=== PATIENT | female | born 1980 | race Caucasian/White ===

== ENCOUNTER 2024-07-08 15:41 | Outpatient (AMB) | payer BC, SELFPAY ==
--- NOTE | 2024-07-08 15:51 | A.OFFPC_ITS ---
Vital Signs 07/08/24 15:52 Height 5 ft 6.93 in Weight 198 lb 2 oz BMI 31.1 BP 132/87 Blood Pressure Location Lt brachial Position Sitting Respiration 12 Pulse 81 Pulse Source Pulse Oximeter Pulse Oximetry (%) 97 Oxygen Delivery Method Room Air Intake Visit Reasons: [facility] Tobacco use date assessed: 07/08/24 Dental Screening Dental Screen Date: 07/08/24 HPI HPI Comments History of Present Illness Details This is a 44-year-old female with a past medical history of depression, concentration deficit, hand tremors and hypertension presenting to [facility] [employer]. She transferred from my panel at [facility]. The patient was seen at the emergency department on 07/02/2024. She was at home on her Peloton, and 20 minutes into her work out she developed pain in the middle of her chest. She rates it an 8 or a 9/10. She then felt like she was going to pass out and her hands were numb and stiff. She called 911. She had a workup at the ER including chest x-ray, troponin and EKG. ACS ruled out. Her symptoms resolved after a couple of hours. She still did not feel exactly like herself the next day. She has not exercised since then. She has not had these symptoms since then. Her grandmother had a heart attack over the age of 50. She has no other family history of heart disease. Her blood pressure was normal at the ED. Today it is 132/87. She does not have a history of high cholesterol. She does not smoke. She does not drink alcohol excessively. Patient reports there was nothing unusual about that day. She was not under more stress. She had not eaten anything strange or been sick. She denies acid reflux or abdominal pain. The only medication she takes is bupropion 450 mg (taking a 300 mg and 150 mg extended release tablet) for depression and concentration deficit. She has an appointment with neurology in August at [facility] with Dr. Sweet for evaluation of the tremors in her hands. She just a whole body exam with dermatology recently. ROS: Constitutional: No fevers or chills or unexplained weight loss. Eyes: No vision changes, blurry vision, double vision ENT: No hearing loss, sneezing, congestion, runny nose or sore throat. Respiratory: No shortness of breath, cough or sputum production. Cardiovascular: See HPI Gastrointestinal: No anorexia, nausea, vomiting or diarrhea. No abdominal pain Neurologic: No syncope, seizures or headaches Physical exam: Constitutional: Alert, in no distress. Head: Normocephalic. Neck: Supple, Full range of motion. No lymphadenopathy. No palpable thyroid masses. Respiratory: Clear to auscultation. Cardiovascular: S1 S2 regular. No murmurs. Gastrointestinal: Abdomen soft, non-tender, non-distended. Normal bowel sounds. No palpable masses. Extremities: Warm and well perfused. No clubbing, cyanosis or edema. 3+ peripheral pulses bilaterally. Psychiatric: Normal mood and affect [facility] Medical History (Updated 07/08/24 @ 17:11 by GRICELDA Welsh) Chest pain Tremor of both hands Obesity, class 1 Essential hypertension Epistaxis Dizziness Depression Concentration deficit Cholelithiasis Carpal tunnel syndrome Surgical History (Updated 07/08/24 @ 17:11 by GRICELDA Welsh) History of cholecystectomy History of appendectomy Social History Housing: House Patient Tobacco Use Status: Never used Tobacco e-Cigarette/Vaping Use: Never Used Second Hand Smoke Exposure: No service: Yes Current occupational status: employed Current occupation: [employer] Current occupational exposures/hazards: Yes Cognitive needs: No Hearing needs: No Vision needs: No Questionnaire PHQ-9 Over the last 2 weeks, how often have you been bothered by any of the following problems? 1. Little interest or pleasure in doing things: not at all 2. Feeling down, depressed, or hopeless: not at all 3. Trouble falling or staying asleep, or sleeping too much: not at all 4. Feeling tired or having little energy: not at all 5. Poor appetite or overeating: not at all 6. Feeling bad about yourself - or that you are a failure or have let yourself or your family down: not at all 7. Trouble concentrating on things, such as reading the newspaper or watching television: nearly every day 8. Moving or speaking so slowly that other people could have noticed. Or the opposite - being so fidgety or restless that you have been moving around a lot more than usual: not at all 9. Thoughts that you would be better off or of hurting yourself in some way: not at all Total score: 3 Source: Developed by Drs. Jalen Garcia, Rocio Mcmillan, Blaine Mo and colleagues, with an educational jose from [employer]. Thrive Questionnaire Date Thrive assessed: 06/06/24 I am a: Patient What is your living situation today?: I have a steady place to live Within the past 12 months, did the food you bought not last and you didn't have the money to get more?: I choose not to answer this question Within the past 12 months, did you worry whether your food would run out before you got money to buy more?: I choose not to answer this question Do you have trouble paying for medicines?: No Do you have trouble getting transportation to medical appointments?: No Do you have trouble paying your heating and electricity bill?: No Do you have trouble taking care of your child, family member or friend?: No Do you have trouble with day-to-day activities such as bathing, preparing meals, shopping, managing finances, etc.?: No Are you currently unemployed and looking for a job?: No Are you interested in more education?: No Please select the resources that you would like help with: None Currently or been in a relationship where the following occur: No concerns reported THRIVE Score: 0 RODRIGUEZ-7 AMB Questionnaire RODRIGUEZ-7 Becoming easily annoyed or irritable: 0 = Not at all Source: Developed by Drs. Jalen Garcia, Rocio Mcmillan, Blaine Mo and colleagues, with an educational jose from [employer]. Physical exam (Primary Care) Vital Signs: Last Vital Signs Pulse 81 07/08/24 15:52 Resp 12 07/08/24 15:52 BP 132/87 07/08/24 15:52 Pulse Ox 97 07/08/24 15:52 Oxygen Delivery Method Room Air 07/08/24 15:52 BMI result Body Mass Index 31.1 Tobacco/Smoking Status: Tobacco use Status Tobacco use date assessed 07/08/24 07/08/24 15:55 Patient Tobacco Use Status Never used Tobacco 07/08/24 15:55 e-Cigarette/Vaping Use Never Used 07/08/24 15:55 PHQ-9: PHQ-9 Score PHQ-9: Total score 3 07/08/24 16:11 Thrive Assessment: Date of Thrive Assessment Date Thrive assessed 06/06/24 07/08/24 15:55 Currently or been in a relationship where the following occur: No concerns reported Coding Level of Care Code Est Pt Level 4 (22065) Complex EM visit Add On G2211 Diagnoses Chest pain R07.9 Depression F32.A Concentration deficit R41.840 Assessment & Plan Assessment & Plan (1) Chest pain: Code(s): R07.9 - Chest pain, unspecified Category: Medical Plan: Exertional chest pain with near syncopal event. ER workup negative for ACS. Ordered echo and nuclear stress test to be done urgently. Patient advised to call 911 for recurrent symptoms. Check lipid profile for risk factor stratification. (2) Depression: Code(s): F32.A - Depression, unspecified Category: Medical Plan: Stable on bupropion. Refills sent. (3) Concentration deficit: Code(s): R41.840 - Attention and concentration deficit Category: Medical Plan Follow up in 4 weeks for a physical. Orders: Orders Lipid Panel Today E78.5 - Hyperlipidemia, unspecified CA stress test Today R07.9 - Chest pain, unspecified, R55 - Syncope and collapse NM cardiolite stress test Today R07.9 - Chest pain, unspecified, R55 - Syncope and collapse CA echo transthoracic complete Today R07.9 - Chest pain, unspecified, R55 - Syncope and collapse Medications: New bupropion HCl XL 450 mg PO QAM 90 tabs 3RF
[2024-07-08 15:52] VITALS: BP 132/87; PULSE 81; RESP 12; O2SAT 97; BMI 31.1
== END 2024-07-08 16:26 | disposition home or self-care (01) ==
PROVIDERS: PCP Physician Assistant Medical; Visit Provider Physician Assistant Medical
DX: R07.9 Chest pain, unspecified (principal); F32.A Depression, unspecified; R41.840 Attention and concentration deficit

== ENCOUNTER 2024-08-26 08:12 | Outpatient (AMB) | payer BC, SELFPAY ==
--- NOTE | 2024-08-26 08:30 | MHC.PC.OV ---
Vital Signs 08/26/24 08:35 Height 5 ft 6.93 in Weight 197 lb 6 oz BMI 31.0 BP 112/78 Blood Pressure Location Lt brachial Position Sitting Pulse 78 Pulse Source Pulse Oximeter Pulse Oximetry (%) 98 Oxygen Delivery Method Room Air Intake Visit Reasons: annual physical Intake Note: Physical Corporation Secretary Required: No Allergies penicillin G Allergy (Unknown, Verified 08/26/24 08:31) Rash Tobacco use date assessed: 08/26/24 Dental Screening Dental Screen Date: 07/08/24 HPI HPI Comments History of Present Illness Details This is a 44-year-old female with a past medical history of depression, concentration deficit, hand tremors and hypertension presenting for her annual physical exam. Patient seen 07/08/24: The patient was seen at the emergency department on 07/02/2024. She was at home on her Peloton, and 20 minutes into her work out she developed pain in the middle of her chest. She rates it an 8 or a 9/10. She then felt like she was going to pass out and her hands were numb and stiff. She called 911. She had a workup at the ER including chest x-ray, troponin and EKG. ACS ruled out. Her symptoms resolved after a couple of hours. She still did not feel exactly like herself the next day. She has not exercised since then. She has not had these symptoms since then. Her grandmother had a heart attack over the age of 50. She has no other family history of heart disease. Her blood pressure was normal at the ED. Today it is 132/87. She does not have a history of high cholesterol. She does not smoke. She does not drink alcohol excessively. Patient reports there was nothing unusual about that day. She was not under more stress. She had not eaten anything strange or been sick. She denies acid reflux or abdominal pain. She did not get a call to schedule the echo or stress test I ordered. She has not had further episodes. She denies chest pain and shortness of breath. 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 I spoke to the office and sent a message to have the prior authorization is done for the testing. Patient was instructed to call if she does not hear about them in 2 weeks. I set a patient reminder. She takes is bupropion 450 mg (taking a 300 mg and 150 mg extended release tablet) for depression and concentration deficit. She does note more difficulty concentrating recently. She wonders if it could be due to the upcoming wedding for her son. It is the Monday. She is nervous about it. She is also excited about it. We discussed alternative medications, but she would like to continue it for now. She declines psych consult. She has a history of epistaxis. She saw ENT, but she was not satisfied with the consult. She would like a new referral. She was referred to the ENT office in [place]. She has an appointment with neurology September 08 at [facility] with Dr. Sweet for evaluation of the tremors in her hands. She is sleeping well. She saw dermatology in 2023 for an annual skin exam. 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 UTD with eye and dental exams. Last tetatnus immunization in 2016 per patient through work. Influenza vaccine administered today. ROS: Constitutional: No unexplained weight loss, fever, chills, fatigue or night sweats. Eyes: No vision changes, blurry vision, double vision, eye pain, eye redness, eye discharge. ENT: No hearing loss, sneezing, congestion, runny nose or sore throat. Respiratory: No shortness of breath, cough or sputum production. Cardiovascular: No chest pain, chest pressure or chest discomfort. No palpitations or pedal edema. Gastrointestinal: No anorexia, nausea, vomiting or diarrhea. No abdominal pain or blood in stool. Genitourinary: No dysuria, hematuria, urinary frequency. Neurologic: No headache, dizziness, syncope, unilateral weakness, ataxia, numbness or tingling in the extremities. Musculoskeletal: No muscle pain, back pain, joint pain or swelling. Hematologic/Lymphatics: No bleeding or bruising. No painful lymph nodes. Skin: No rash. Endocrine: No cold or heat intolerance. No polyuria or polydipsia. Psychiatric: No SI/HI. Physical exam: Constitutional: Alert, in no distress. Head: Normocephalic. Eyes: Pupils are equal, round and reactive to light. Extraocular muscles intact. Ear, Nose and Throat: Canals clear. Left TM with a few clear air-fluid bubbles. It is not erythematous or bulging. The right tympanic membrane is normal aside from a scar. There is a friable appearing vessel in the left nares. There is no active nasal bleeding. No nasal discharge. No oral lesions. Neck: Supple, Full range of motion. No lymphadenopathy. No palpable thyroid masses. Respiratory: Clear to auscultation. Cardiovascular: S1 S2 regular. No murmurs. No carotid bruits. Gastrointestinal: Abdomen soft, non-tender, non-distended. Normal bowel sounds. No palpable masses. Neurologic: No focal neurological deficits. Symmetric patellar reflexes. Moves all extremities spontaneously. Sensation intact bilaterally. Skin: No rashes Musculoskeletal: No gross deformities. Normal range of motion. Extremities: Warm and well perfused. No clubbing, cyanosis or edema. 3+ peripheral pulses bilaterally. Psychiatric: Normal mood and affect [facility] Medical History (Updated 08/26/24 @ 08:36 by GRICELDA Welsh) Routine physical examination Chest pain Tremor of both hands Obesity, class 1 Essential hypertension Epistaxis Dizziness Depression Concentration deficit Cholelithiasis Carpal tunnel syndrome Surgical History (Updated 07/08/24 @ 17:11 by GRICELDA Welsh) History of cholecystectomy History of appendectomy Social History Housing: House Alcohol intake: never Patient Tobacco Use Status: Never used Tobacco e-Cigarette/Vaping Use: Never Used Second Hand Smoke Exposure: No service: Yes Current occupational status: employed Current occupation: [employer] Current occupational exposures/hazards: Yes Cognitive needs: No Hearing needs: No Vision needs: No Questionnaire PHQ-9 Over the last 2 weeks, how often have you been bothered by any of the following problems? 1. Little interest or pleasure in doing things: not at all 2. Feeling down, depressed, or hopeless: several days 3. Trouble falling or staying asleep, or sleeping too much: not at all 4. Feeling tired or having little energy: several days 5. Poor appetite or overeating: not at all 6. Feeling bad about yourself - or that you are a failure or have let yourself or your family down: not at all 7. Trouble concentrating on things, such as reading the newspaper or watching television: several days 8. Moving or speaking so slowly that other people could have noticed. Or the opposite - being so fidgety or restless that you have been moving around a lot more than usual: not at all 9. Thoughts that you would be better off or of hurting yourself in some way: not at all Total score: 3 Depression Screening Interpretation: Negative Depression Screening Done: Yes 29314 - PHQ-9 Billing: Yes Source: Developed by Drs. Jalen Garcia, Blaine Mckay and colleagues, with an educational jose from [employer]. Thrive Questionnaire Date Thrive assessed: 08/19/24 I am a: Patient What is your living situation today?: I have a steady place to live Within the past 12 months, did the food you bought not last and you didn't have the money to get more?: Never true Within the past 12 months, did you worry whether your food would run out before you got money to buy more?: Never true Do you have trouble paying for medicines?: No Do you have trouble getting transportation to medical appointments?: No Do you have trouble paying your heating and electricity bill?: No Do you have trouble taking care of your child, family member or friend?: No Do you have trouble with day-to-day activities such as bathing, preparing meals, shopping, managing finances, etc.?: No Are you currently unemployed and looking for a job?: No Are you interested in more education?: No Please select the resources that you would like help with: None Currently or been in a relationship where the following occur: No concerns reported THRIVE Score: 0 AUDIT C Alcohol Use Questionnaire (AUDIT-C) 1. How often do you have a drink containing alcohol?: Never Total Score: 0 RODRIGUEZ-7 AMB Questionnaire RODRIGUEZ-7 Date RODRIGUEZ - 7 assessed: 08/26/24 Feeling nervous, anxious, or on edge: 0 = Not at all Not being able to stop or control worryin = Not at all Worrying too much about different things: 0 = Not at all Trouble relaxin = Not at all Being so restless that it is hard to sit still: 0 = Not at all Becoming easily annoyed or irritable: 1 = Several days Feeling afraid as if something awful might happen: 0 = Not at all Total RODRIGUEZ-7 score (0-4 normal; 5-9 mild; 10-14 moderate; 15-21 severe): 1 Source: Developed by Rocio Colón Kurt Kroenke and colleagues, with an educational jose from [employer]. RODRIGUEZ-7 Assessment Billing RODRIGUEZ-7 Assessment Tool: RODRIGUEZ-7 Assessment 28064 Physical exam (Primary Care) Tobacco/Smoking Status: Tobacco use Status Tobacco use date assessed 07/08/24 07/08/24 15:55 Patient Tobacco Use Status Never used Tobacco 07/08/24 15:55 e-Cigarette/Vaping Use Never Used 07/08/24 15:55 Depression Screening Interpretation: Negative Thrive Assessment: Date of Thrive Assessment Date Thrive assessed 08/19/24 08/19/24 12:04 Currently or been in a relationship where the following occur: No concerns reported Coding Level of Care Code Est Pt Prev Care 40-64y(96049) Diagnoses Routine physical examination Z00.00 Chest pain R07.9 Additional Codes RODRIGUEZ-7 Assessment Billing - RODRIGUEZ-7 Assessment Tool: RODRIGUEZ-7 Assessment 05596 ([id number]) PHQ-9 - 09000 - PHQ-9 Billing: Yes ([id number]) Assessment & Plan Assessment & Plan (1) Routine physical examination: Code(s): Z00.00 - Encounter for general adult medical examination without abnormal findings Category: Medical (2) Chest pain: Code(s): R07.9 - Chest pain, unspecified Category: Medical Plan: see HPI Plan Patient is seen today for a routine physical. 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 Orders: Orders Complete Blood Count no Diff Today I10 - Essential (primary) hypertension, R25.1 - Tremor, unspecified TSH reflex Free T4 Today I10 - Essential (primary) hypertension, R25.1 - Tremor, unspecified Influenza [id number] Immunization Today Z23 - Encounter for immunization Comprehensive Met. Panel Today I10 - Essential (primary) hypertension, R25.1 - Tremor, unspecified Referrals Ear/Nose/Throat Referral R04.0 - Epistaxis Medications: New Fluarix Triv [id number] (PF) (flu vacc [id number] 6mos up(PF)) 0.5 mL IM ONCE 0.5 mL 0RF NS Z23 - Encounter for immunization
[2024-08-26 08:35] VITALS: BP 112/78; PULSE 78; O2SAT 98; BMI 31.0
== END 2024-08-26 09:17 | disposition home or self-care (01) ==
PROVIDERS: PCP Physician Assistant Medical; Visit Provider Physician Assistant Medical
DX: Z00.00 Encounter for general adult medical examination without abnormal findings (principal); R07.9 Chest pain, unspecified; Z23 Encounter for immunization

== ENCOUNTER → 2024-08-26 08:12 | Outpatient (BNVA) | payer BC, SELFPAY | PROVIDERS: PCP Physician Assistant Medical; Visit Provider Physician Assistant Medical | DX: Z00.00 Encounter for general adult medical examination without abnormal findings (principal); Z23 Encounter for immunization; F32.A Depression, unspecified; R25.1 Tremor, unspecified; I10 Essential (primary) hypertension; R41.840 Attention and concentration deficit; Z79.899 Other long term (current) drug therapy | CPT/HCPCS: 90471; 90656; 96127 ==

== ENCOUNTER 2024-09-04 14:47 | Outpatient (AMB) | payer BC, SELFPAY ==
[2024-09-04 14:58] VITALS: BMI 32.0
--- NOTE | 2024-09-04 14:58 | MHC.OFFVIS ---
Vital Signs 09/04/24 14:58 Height 5 ft 6 in Weight 198 lb BMI 32.0 Intake Visit Reasons: ENP: Tremors Intake Note: Patient presents for tremors mostly hands once in a while will feel tremors in legs Allergies penicillin G Allergy (Unknown, Verified 09/04/24 15:01) Rash Medication List - Last Reconciled 09/04/24 by Eliza Sweet MD bupropion HCl XL 300 mg PO QAM bupropion HCl XL 150 mg PO QAM multivitamin 1 tab PO DAILY HPI Comments Details: 44y/o Right handed female comes for evaluation of tremors. she always had mild tremors in her hands for over 20 years but for the pats 2 years she feels it is worse. Now she is unable use an eyeliner, difficulty with fine motor function, drinking liquids ( uses 2 hands now), eating etc. The tremors are during certain postures .when she is anxious or stressed, she has noticed rest tremors even in her legs. she is able to hide the tremor sin social situations. No head tremors or voice tremors Her father has mild tremors and her older son has tremors. 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 she denies weakness, gait issues, change in voice etc. she also has mild voic etremors she was seen by Dr. Cazares and had MRI brain, TSH levels . Both were normal [facility] Medical History (Updated 09/04/24 @ 15:38 by Eliza Sweet MD) Essential and other specified forms of tremor Routine physical examination Chest pain Tremor of both hands Obesity, class 1 Essential hypertension Epistaxis Dizziness Depression Concentration deficit Cholelithiasis Carpal tunnel syndrome Surgical History History of cholecystectomy History of appendectomy Social History Housing: House Alcohol intake: never Patient Tobacco Use Status: Never used Tobacco e-Cigarette/Vaping Use: Never Used Second Hand Smoke Exposure: No service: Yes Current occupational status: employed Current occupation: [employer] Current occupational exposures/hazards: Yes Cognitive needs: No Hearing needs: No Vision needs: No Physical Exam Vital Signs: BMI result Body Mass Index 32.0 Const General: cooperative, healthy appearing and comfortable Nutritional Appearance: overweight Orientation/consciousness: patient oriented x3 Limitations: no limitations Eyes Pupils: Equal, round and reactive pupils present Neuro Other: very mild postural tremors, robyn UE ARchimedes spiral - mild tremors right moderate - left Handwriting is Ok General: patient oriented x3, gait normal, tone normal and moves all extremities Cranial nerves: Yes Facial sensation intact/muscles of mastication intact, Yes Equal, round and reactive pupils present, Yes Bilaterally intact EOM present, Yes Nystagmus not present, Yes Normal facial strength present, Yes Midline tongue present and Yes Symmetric palate elevation present Cognition (Neuro): normal cognition Gait exam (Neuro): Normal gait present Motor exam (neuro): 5/5 motor strength present throughout and Normal motor muscle tone present throughout Deep tendon reflexes (DTR's): Right triceps reflex intensity grade: 1+, Left triceps reflex intensity grade: 1+, Rt Biceps (C5, C6): 1+, Left biceps reflex intensity grade: 1+, Right brachioradialis reflex intensity grade: 1+, Left brachioradialis reflex intensity grade: 1+ and Right patellar reflex intensity grade: 1+ Coordination: [id number] test normal Assessment & Plan Assessment & Plan (1) Essential and other specified forms of tremor: 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 Medications: New propranolol 10 mg PO BID PRN 60 tabs 2RF tremors Coding Level of Care Code New Pt Level 4 (26981) Diagnoses Essential and other specified forms of tremor G25.0; G25.2
--- OUTSIDE RECORDS SUMMARY | 2024-09-04 17:18 | XMS_ITS | Clinical Summary ---
Author Organization [facility] Address [address] [place] [address] Care Team Providers Care Orthopaedic Surgeon Name Role Phone Bernardo Pisano PA-C Primary Care Provider [phone] Medications No known medications Active Problems No known active problems Social History Tobacco Use Types Packs/Day Years Used Date Smoking Tobacco: Never Assessed Sex and Gender Information Value Date Recorded Sex Assigned at Female 04/26/2022 9:21 AM EDT Gender Identity Not on file Sexual Orientation Not on file Job Start Date Occupation Industry Not on file Not on file Not on file Last Filed Vital Signs Vital Sign Reading Time Taken Comments Blood Pressure 126/86 04/26/2022 3:51 PM EDT Pulse 77 04/26/2022 3:51 PM EDT Temperature 36.8 ??C (98.3 ??F) 04/26/2022 3:51 PM ED T Respiratory Rate 18 04/26/2022 3:51 PM EDT Oxygen Saturation 97% 04/26/2022 3:51 PM EDT Inhaled Oxygen Concentration - - Weight 101.2 kg (223 lb) 04/26/2022 1:23 PM EDT Height 172.7 cm (5' 8 ) 04/26/2022 1:23 PM EDT Body Mass Index 33.91 04/26/2022 1:23 PM EDT Plan of Treatment Health Maintenance Due Date Last Done Comments Hepatitis B Vaccines (1 of 3 - 3-dose series) 1982 Hepatitis C Screening 1982 Depression Screening 1994 Preventative Health Evaluation 2000 Cervical Cancer Screening (Pap Smear) 2003 DTap / Tdap / Td (2 - Tdap) 04/26/2014 04/26/2004 COVID-19 Vaccine (2023-2 5 season) 2024 10/06/2020, 09/15/2020 Influenza Vaccine (#1) 2024 , 08/20/2018, 09/28/2016 Pneumococcal Vaccine Aged Out No long er eligible based on patient's age to complete this topic RSV Ped < 20 months Aged Out No longe r eligible based on patient's age to complete this topic Care Teams Orthopaedic Surgeon Relationship Specialty Start Date End Date Bernardo Pisano PA-C [address] [place] [phone] PCP - General Physician Crew Chief 04/26/22
--- OUTSIDE RECORDS SUMMARY | 2024-09-04 17:18 | XMS_ITS | Encounter Summary ---
Author Organization [facility] Address [address] [place] [address] Care Team Providers Care Accountant Manager Name Role Phone Unavailable Primary Care Provider Unavailabl e Encounter Details Date Type Department Care Team (Late st Contact Info) Description 06/26/2020 Lab Requisition EM Lab DOC: Jeremias Cochran [address] [place] [phone] Bernardo Ramirez PA-C [address] [place] [phone] Encounter for laboratory testing for COVID-19 virus Social History Tobacco Use Types Packs/Day Years Used Date Smoking Tobacco: Never Assessed Sex and Gender Information Value Date Recorded Sex Assigned at Not on file Gender Identity Not on file Sexual Orientation Not on file documented as of this encounter Plan of Treatment Not on file documented as of this encounter Procedures Procedure Name Priority Date/Time Associated Diagnosis Comments SARS COV-2 RNA (COVID-19), QUAL Routine 06/26/2020 8:33 AM EST Encounter for laboratory testing for COVID-19 virus [ICD-10-CM] documented in this encounter Results * SARS CoV-2 RNA (COVID-19), Qual (06/26/2020 8:33 AM EST) Pathologist [facility] SARS CoV 2 RNA, Qual NOT DETECTED NOT DETECTED 06/28/2020 9:00 PM EST [facility] Comment: A Not Detected (negative) test result for this test means that SARS-CoV-2 RNA was not present in the specimen above the limit of detection. A negative result does not rule out the possibility of COVID-19 and should not be used as the sole basis for treatment or patient management decisions. If COVID-19 is still suspected, based on exposure history together with other clinical findings, re-testing should be considered in consultation with public health authorities. Laboratory test results should always be considered in the context of clinical observations and epidemiological data in making a final diagnosis and patient management decisions. REFERENCE RANGE: ??NOT DETECTED This patient specimen was tested using an FDA EUA pooling method. Negative results from pooled testing should not be treated as definitive. ??If the patient's clinical signs and symptoms are inconsistent with a negative result or results are necessary for patient management, then the patient should be considered for individual testing. Specimens with low viral loads may not be detected in sample pools due to the decreased sensitivity of pooled testing. Please review the Fact Sheets and FDA authorized labeling available for health care providers and patients using the following websites: https://www.Stix Games.Gamervision/home/Covid-19/HCP/QuestLDTP/ fact-sheet https://www.VASS Technologies/home/Covid-19/Patients/QuestLDTP/ fact-sheet.html This test has been authorized by the FDA under an Emergency Use Authorization (EUA) for use by authorized laboratories. Due to the current public health emergency, [employer] is receiving a high volume of samples from a wide variety of swabs and media for COVID-19 testing. In order to serve patients during this public health crisis, samples from appropriate clinical sources are being tested. Negative test results derived from specimens received in non-commercially manufactured viral collection and transport media, or in media and sample collection kits not yet authorized by FDA for COVID-19 testing should be cautiously evaluated and the patient potentially subjected to extra precautions such as additional clinical monitoring, including collection of an additional specimen. Methodology: ??Nucleic Acid Amplification Test (NAAT) includes RT-PCR or TMA ?? Additional information about COVID-19 can be found at the [employer] website: www.Naurex.Gamervision/Covid19. Microbiology Nasopharyngeal swab / Unknown 06/26/2020 8:33 AM EST 06/26/2020 8:33 AM EST [facility] - 06/28/2020 9:00 PM EST Performing Organization Information: ?Site ID: [id number] ?Name: [employer] ?Address: [address] [place] [address],[place] [address] ?Director: ALFREDO MACKEY MD [facility] at [facility] number [id number] Bernardo Ramirez PA-C MICROBIOLOGY - [facility] ORDERABLES Performing Organization Address City/State/[facility] Co de Phone Number [facility] documented in this encounter Visit Diagnoses Diagnosis Encounter for laboratory testing for COVID-19 virus documented in this encounter
--- OUTSIDE RECORDS SUMMARY | 2024-09-04 17:18 | XMS_ITS | Encounter Summary ---
Author Organization [facility] Address [address] [place] [address] Care Team Providers Care Credit Professional Name Role Phone Unavailable Primary Care Provider Unavailabl e Encounter Details Date Type Department Care Team (Late st Contact Info) Description 06/16/2020 Lab Requisition EM Lab DOC: Jeremias Cochran [address] [place] [phone] Bernardo Ramirez PA-C [address] [place] [address] [phone] Encounter for laboratory testing for COVID-19 virus [...] Comments SARS COV-2 RNA (COVID-19), QUAL Routine 06/16/2020 2:46 PM EST Encounter for laboratory testing for COVID-19 virus [ICD-10-CM] documented in this encounter Results * SARS CoV-2 RNA (COVID-19), Qual (06/16/2020 2:46 PM EST) Pathologist [facility] SARS CoV 2 RNA, Qual NOT DETECTED NOT DETECTED 06/17/2020 10:00 PM EST [facility] Comment: A Not Detected (negative) test result [...] providers and patients using the following websites: https://www.Toppermost, Corp..Pzoom/home/Covid-19/HCP/QuestLDTP/ fact-sheet https://www.Face-Me/home/Covid-19/Patients/QuestLDTP/ fact-sheet.html This test has been authorized by the FDA under an Emergency Use Authorization (EUA) for use by authorized laboratories. Due to the current public health emergency, [facility] is receiving a high volume of samples [...] about COVID-19 can be found at the [employer] website: www.FourthWall Media.Pzoom/Covid19. Microbiology Nasopharyngeal swab / Unknown 06/16/2020 2:46 PM EST 06/16/2020 2:46 PM EST Narrative [facility] - 06/17/2020 10:00 PM EST Performing Organization Information: ?Site ID: [id number] ?Name: [employer] ?Address: [address] [place] [address],[place] [address] ?Director: ALFREDO MACKEY MD Performed at [facility] License number [id number] Bernardo Ramirez PA-C MICROBIOLOGY - [facility] ORDERABLES Performing Organization Address City/State/[facility] Co de Phone Number [facility] documented in this encounter Visit Diagnoses Diagnosis Encounter for laboratory testing for COVID-19 virus documented in this encounter
--- OUTSIDE RECORDS SUMMARY | 2024-09-04 17:18 | XMS_ITS | Encounter Summary ---
Author Organization [facility] Address [address] [place] [address] Care Team Providers Care Urban Renewal Manager Name Role Phone Unavailable Primary Care Provider Unavailabl e Encounter Details Date Type Department Care Team (Late st Contact Info) Description 08/11/2020 Lab Requisition EM Lab DOC: Jeremias Cochran [address] [place] [phone] Bernardo Ramirez PA-C [address] [place] [phone] Encounter for laboratory testing for COVID-19 virus [...] Comments SARS COV-2 RNA (COVID-19), QUAL Routine 08/11/2020 8:07 AM EST Encounter for laboratory testing for COVID-19 virus [ICD-10-CM] documented in this encounter Results * SARS CoV-2 RNA (COVID-19), Qual (08/11/2020 8:07 AM EST) Pathologist [facility] SARS CoV 2 RNA, Qual NOT DETECTED NOT DETECTED 08/12/2020 10:00 PM EST [facility] Comment: A Not Detected (negative) test result for this test means that SARS- CoV-2 RNA was not present in the specimen above the limit of detection. A negative result does not rule out the possibility of COVID-19 and should not be used as the sole basis for treatment or patient management decisions. ??If COVID-19 is still suspected, based on exposure history together with other clinical findings, re-testing should be considered in consultation with public health authorities. Laboratory test results should always be considered in the context of clinical observations and epidemiological data in making a final diagnosis and patient management decisions. Please review the Fact Sheets and FDA authorized labeling available for health care providers and patients using the following websites: https://www.Pickatale.Mark Forged/home/Covid-19/HCP/NAAT/fact-sheet2 https://www.Pickatale.Mark Forged/home/Covid-19/Patients/NAAT/ fact-sheet2 This test has been authorized by the FDA under an Emergency Use Authorization (EUA) for use by authorized laboratories. Due to the current public health emergency, [employer] is receiving a high volume of samples [...] about COVID-19 can be found at the [employer] website: www.Advanced Circulatory/Covid19. Microbiology Nasopharyngeal swab / Unknown 08/11/2020 8:07 AM EST 08/11/2020 8:07 AM EST Narrative [facility] - 08/12/2020 10:00 PM EST Performing Organization Information: ?Site ID: [id number] ?Name: [employer] ?Address: [address] [place] [address] [address]LO[address] [address] ?Director: ALFREDO MACKEY MD [facility]formed at [facility] License number [id number] Bernardo Ramirez PA-C MICROBIOLOGY - [facility] ORDERABLES [facility] documented in this encounter Visit Diagnoses Diagnosis Encounter for laboratory testing for COVID-19 virus documented in this encounter
--- OUTSIDE RECORDS SUMMARY | 2024-09-04 17:18 | XMS_ITS | Encounter Summary ---
Author Organization [facility] Address [address] [place] [address] Care Team Providers Care Sugar Controller Name Role Phone Unavailable Primary Care Provider Unavailabl e Encounter Details Date Type Department Care Team (Late st Contact Info) Description 07/16/2020 Lab Requisition EM LAB DOC [facility] [address] [place] [phone] Bernardo Ramirze PA-C [address] [place] [phone] Encounter for laboratory testing for COVID-19 virus [...] Comments SARS COV-2 RNA (COVID-19), QUAL Routine 07/16/2020 1:50 PM EST Encounter for laboratory testing for COVID-19 virus [ICD-10-CM] documented in this encounter Results * SARS CoV-2 RNA (COVID-19), Qual (07/16/2020 1:50 PM EST) Pathologist [facility] SARS CoV 2 RNA, Qual NOT DETECTED NOT DETECTED 07/18/2020 5:00 PM EST [facility] Comment: A Not Detected (negative) [...] providers and patients using the following websites: https://www.MiMedx Group.[facility]/home/Covid-19/HCP/NAAT/fact-sheet2 https://www.MiMedx Group.[facility]/home/Covid-19/Patients/NAAT/ fact-sheet2 This test has been authorized by the FDA under an Emergency Use Authorization (EUA) for use by authorized laboratories. Due to the current public health emergency, [facility] is receiving a high volume of samples [...] about COVID-19 can be found at the [facility] website: www.GreenGo Energy A/S/Covid19. Microbiology Nasopharyngeal swab / Unknown 07/16/2020 1:50 PM EST 07/16/2020 1:50 PM EST Narrative [facility] - 07/18/2020 5:00 PM EST Performing Organization Information: ?Site ID: [id number] ?Name: [employer] ?Address: [address] [place] [address],[place] [address] ?Director: ALFREDO MACKEY MD [facility]formed at [facility] License number [id number] Bernardo Ramirez PA-C MICROBIOLOGY - [facility] ORDERABLES [facility] documented in this encounter Visit Diagnoses Diagnosis Encounter for laboratory testing for COVID-19 virus documented in this encounter
--- OUTSIDE RECORDS SUMMARY | 2024-09-04 17:18 | XMS_ITS | Encounter Summary ---
Author Organization [facility] Address [address] [place] [address] Care Team Providers Care Master Plumber Name Role Phone Unavailable Primary Care Provider Unavailabl e Encounter Details Date Type Department Care Team (Late st Contact Info) Description 03/03/2020 Lab Requisition EM Lab DOC: Jeremias Cochran [address] [place] [phone] Bernardo Ramirez PA-C [address] [place] [phone] Encounter for laboratory testing for COVID-19 virus [...] Comments SARS COV-2 RNA (COVID-19), QUAL Routine 03/03/2020 12:07 PM EDT Encounter for laboratory testing for COVID-19 virus [ICD-10-CM] documented in this encounter Results * SARS CoV-2 RNA (COVID-19), Qual (03/03/2020 12:07 PM EDT) Pathologist [facility] SARS CoV 2 RNA, Qual NOT DETECTED NOT DETECTED 03/04/2020 5:00 PM EDT [facility] Comment: A Not Detected [...] providers and patients using the following websites: https://www.Liquid Robotics.Dicerna Pharmaceuticals/home/Covid-19/HCP/NAAT/fact-sheet2 https://www.Liquid Robotics.Dicerna Pharmaceuticals/home/Covid-19/Patients/NAAT/ fact-sheet2 This test has been authorized by the FDA under an Emergency Use Authorization (EUA) for use by authorized laboratories. Due to the current public health emergency, [facility] is receiving a high volume of samples [...] Methodology: ??Nucleic Acid Amplification Test (NAAT) includes PCR or TMA ?? Additional information about COVID-19 can be found at the [facility] website: www.Stumpwise/Covid19. Microbiology Nasopharyngeal swab / Unknown 03/03/2020 12:07 PM EDT 03/03/2020 12:07 PM EDT Narrative [facility] - 03/04/2020 5:00 PM EDT Performing Organization Information: ?Site ID: [id number] ?Name: [employer] ?Address: [address] [place] [address],[place] [address] ?Director: ALFREDO MACKEY MD [facility]formed at [facility] License number [id number] Bernardo Ramirez PA-C MICROBIOLOGY - [facility] ORDERABLES [facility] documented in this encounter Visit Diagnoses Diagnosis Encounter for laboratory testing for COVID-19 virus documented in this encounter
--- OUTSIDE RECORDS SUMMARY | 2024-09-04 17:18 | XMS_ITS | Clinical Summary ---
Author Organization [facility] Address [address] [place] [address] Care Team Providers Care Construction Sales Manager Name Role Phone Unavailable Primary Care Provider Unavailabl e Encounters Date Type Department Care Team Description 09/04/2024 Transcribe Orders [facility] PRIMARY CARE SCAN Evon Carcamo PA Epistaxis (Primary Dx) from Last 3 Months Social History Tobacco Use Types Packs/Day Years Used Date Smoking Tobacco: Never Assessed Sex and Gender Information Value Date Recorded Sex Assigned at Not on file Gender Identity Not on file Sexual Orientation Not on file Plan of Treatment Health Maintenance Due Date Last Done Comments Hepatitis C Virus Screening 1982 HIV Screening 1995 DTaP/Tdap/Td Vaccines (1 - Tdap) 2001 Hepatitis B Vaccines (1 of 3 - 19+ 3-dose series) 2001 COVID-19 Vaccine (2023-2 5 season) 2024 HPV Vaccines Aged Out No longer eligi ble based on patient's age to complete this topic Pneumococcal Vaccine: Pediat shital (0-5 Years) and At-Risk Patients (6 to 49 Years) Aged Out No longer eligible b ased on patient's age to complete this topic
--- OUTSIDE RECORDS SUMMARY | 2024-09-04 17:18 | XMS_ITS | Encounter Summary ---
Author Organization [facility] Address [address] [place] [address] Care Team Providers Care Spindraw Operator Name Role Phone Unavailable Primary Care Provider Unavailabl e Encounter Details Date Type Department Care Team (Late st Contact Info) Description 05/19/2020 Lab Requisition EM Lab DOC: Jeremias Cochran [address] [place] [phone] Bernardo Ramirez PA-C [address] [place] [address] [phone] Encounter for laboratory testing for COVID-19 virus [...] Comments SARS COV-2 RNA (COVID-19), QUAL Routine 05/19/2020 2:48 PM EDT Encounter for laboratory testing for COVID-19 virus [ICD-10-CM] documented in this encounter Results * SARS CoV-2 RNA (COVID-19), Qual (05/19/2020 2:48 PM EDT) Pathologist [facility] SARS CoV 2 RNA, Qual NOT DETECTED NOT DETECTED 05/20/2020 11:00 PM EDT [facility] Comment: A [...] providers and patients using the following websites: https://www.Ephesus Lighting.Alacritech/home/Covid-19/HCP/QuestLDTP/ fact-sheet https://www.Blinkit/home/Covid-19/Patients/QuestLDTP/ fact-sheet.html This test has been authorized by the FDA under an Emergency Use Authorization (EUA) for use by authorized laboratories. Due to the current public health emergency, [employer] is receiving a high volume of samples [...] about COVID-19 can be found at the [employer] website: www.GC Holdings.Alacritech/Covid19. Microbiology Nasopharyngeal swab / Unknown 05/19/2020 2:48 PM EDT 05/19/2020 2:48 PM EDT Narrative [facility] - 05/20/2020 11:00 PM EDT Performing Organization Information: ?Site ID: [id number] ?Name: [employer] ?Address: [address] [place] [address],[place] [address] ?Director: ALFREDO MACKEY MD [facility] number [id number] Bernardo Ramirez PA-C MICROBIOLOGY - [facility]ER[facility] ORDERABLES Performing Organization Address City/State/[facility] Co de Phone Number [facility] documented in this encounter Visit Diagnoses Diagnosis Encounter for laboratory testing for COVID-19 virus documented in this encounter
--- OUTSIDE RECORDS SUMMARY | 2024-09-04 17:18 | XMS_ITS | Encounter Summary ---
Author Organization [facility] Address [address] [place] [address] Care Team Providers Care Digital Account Manager Name Role Phone Unavailable Primary Care Provider Unavailabl e Reason for Referral * ENT (Routine) - Pending Review Specialty Diagnoses / Procedures Referred By Mai candelaria Referred To Contact Otolaryngology Diagnoses Epistaxis Evon Carcamo PA [address] [place] [address] Cc [facility] [address] [place] [address] [place] [address] Referral ID Status Reason Start Date Expiration Date Visits Requested Visits Authorized [id number] Pending Review Consult 09/04/2024 09/05/2025 1 1 Encounter Details Date Type Department Care Team (Late st Contact Info) Description 09/04/2024 Transcribe Orders [facility] PRIMARY CARE SCAN Evon Carcamo PA [address] [place] [address] Epistaxis (Primary Dx) Social History Tobacco Use Types Packs/Day Years Used Date Smoking Tobacco: Never Assessed Sex and Gender Information Value Date Recorded Sex Assigned at Not on file Gender Identity Not on file Sexual Orientation Not on file documented as of this encounter Plan of Treatment Scheduled Referrals Name Type Priority Associated Diagnoses Order Schedule Ambulatory referral to ENT Outpatient Referral Routine Epistaxis Ordered: 09/04/2024 documented as of this encounter Visit Diagnoses Diagnosis Epistaxis- Primary documented in this encounter
--- OUTSIDE RECORDS SUMMARY | 2024-09-04 17:18 | XMS_ITS | Clinical Summary ---
Author Organization [facility] ity Address [address] [place] [address] Care Team Providers Care French Cord Binder Name Role Phone Leandra Mena MD Primary Care Provider [phone] Surgical History Surgery Date Site/Laterality Comments OTHER SURGICAL HISTORY 04/27/2022 PROCEDURE: OR LAPAROSCOPIC APPENDECTOMY; COMMENT: Dr Hawk Giles Social History Tobacco Use Types Packs/Day Years Used Date Smoking Tobacco: Never Assessed Sex and Gender Information Value Date Recorded Sex Assigned at Not on file Gender Identity Not on file Sexual Orientation Not on file Obstetrics History Last Filed Vital Signs Vital Sign Reading Time Taken Comments Blood Pressure 130/85 05/11/2022 2:53 PM EDT Pulse 80 05/11/2022 2:53 PM EDT Temperature - - Respiratory Rate - - Oxygen Saturation - - Inhaled Oxygen Concentration - - Weight 103 kg (226 lb 6.4 oz) 05/11/2022 2:53 PM EDT Height - - Body Mass Index - - Plan of Treatment Health Maintenance Due Date Last Done Comments DTaP,Tdap,and Td Vaccines (1 - Tdap) 2001 Hepatitis B Vaccines (1 of 3 - 19+ 3-dose series) 2001 Cervical Cancer Screening: P ap Smear 2003 Depression Screening 07/16/2022 HIV Screening 07/16/2022 Hepatitis C Screening 07/16/2022 Social Influencers of Health Screening 07/16/2022 COVID-19 Vaccine (1 - 2023-2 5 season) 2024 Influenza Vaccine (#1) 2024 Breast Cancer Screening 03/14/2026 03/14/20 24, 03/07/2023, 02/01/2021 HIB Vaccines Aged Out No longer eligi ble based on patient's age to complete this topic HPV Vaccines Aged Out No longer eligi ble based on patient's age to complete this topic Hepatitis A Vaccines Aged Out No long er eligible based on patient's age to complete this topic IPV Vaccines Aged Out No longer eligi ble based on patient's age to complete this topic MMR Vaccines Aged Out No longer eligi ble based on patient's age to complete this topic Meningococcal ACWY Vaccine Aged Out N o longer eligible based on patient's age to complete this topic Pneumococcal Vaccine: Pediatrics (0 to 5 Years) and At-Risk Patients (6 to 64 Years) Aged Out No longer eligible b ased on patient's age to complete this topic RSV Immunization Patients Under 20 months Aged Out No longer eligible b ased on patient's age to complete this topic Varicella Vaccines Aged Out No longer eligible based on patient's age to complete this topic Procedures Procedure Name Priority Date/Time Associated Diagnosis Comments [facility] SCREENING DIGITAL Routine 03/14/2024 2:27 PM EDT Encounter for screening mammogram for malignant neoplasm of breast from Last 3 Months or Most Recently Relevant to Health Maintenance Results * [facility] SCREENING DIGITAL (03/14/2024 2:27 PM EDT) Anatomical Region Laterality Modality Mammography 03/14/2024 1:26 PM EDT Narrative 03/14/2024 2:27 PM EDT [facility] Diagnostic Imaging Department [address] [place], [place] [id number] Patient: ??AGNES PEREZ ?/Age/Sex: 1980 - - Unit#: ??[id number] ? Location/Status: ??SPDIMAM/REG CLI ? Mnemonic/Ordering Site: ??DIGSC/SPMAM Ordering Physician: ??LIZETTE YOUSSEF PA-C Jenn Screening Digital - 03/14/24 - 1345 Report Status:Signed EXAM: [facility] Screening Digital EXAM DATE AND TIME: 03/14/2024 1:46 PM HISTORY: ??Screening. Mother had breast carcinoma at age 58. COMPARISON: ??03/07/23, 02/07/22, 08/09/21, 02/01/21 TECHNIQUE: Bilateral digital breast tomosynthesis was performed in the CC and MLO projections. Computer aided detection with Mezmeriz 3D 3.1 was employed. TISSUE DENSITY: c. The breasts are heterogeneously dense, which may obscure small masses. FINDINGS: No suspicious masses, grouped microcalcifications, or areas of architectural distortion are seen. The skin and vascularity are unremarkable. IMPRESSION: Stable mammographic appearance of the breasts. ??No evidence of malignancy is seen. A negative mammogram in the presence of a clinically suspicious palpable abnormality does not preclude the possibility of malignancy or alter the indications for biopsy. BI-RADS: ??Category 1: Negative RECOMMENDATION(S): 1: Routine screening mammogram BILATERAL in 1 year. Dictating Physician: ??CLARE VASQUEZ MD Electronically Signed by: ??CLARE VASQUEZ MD Dic Date/Time: ??03/14/24 1427 Sign date/Time: ??03/14/24 1427 Procedure Note Clare Vasquez MD - 05/29/2024 [facility] Diagnostic Imaging Department [address] [place] [id number] Patient: AGNES PEREZ /Age/Sex: 1980 - 43 - F Unit#: [id number] Location/Status: SPDIMAM/REG CLI Mnemonic/Ordering Site: [facility] Ordering Physician: LIZETTE YOUSSEF PA-C [facility] Screening Digital - 03/14/24 - 1345 Report Status:Signed EXAM: [facility] Screening Digital EXAM DATE AND TIME: 03/14/2024 1:46 PM HISTORY: Screening. Mother had breast carcinoma at age 58. COMPARISON: 03/07/23, 02/07/22, 08/09/21, 02/01/21 TECHNIQUE: Bilateral digital breast tomosynthesis was performed in the CCand MLO projections. Computer aided detection with Mezmeriz 3D 3.1was employed. TISSUE DENSITY: c. The breasts are heterogeneously dense, which mayobscure small masses. FINDINGS: No suspicious masses, grouped microcalcifications, or areas ofarchitectural distortion are seen. The skin and vascularity are unremarkable. IMPRESSION: Stable mammographic appearance of the breasts. No evidence of malignancyis seen. A negative mammogram in the presence of a clinically suspicious palpable abnormality does not preclude the possibility of malignancy or alter the indications for biopsy. BI-RADS: Category 1: Negative RECOMMENDATION(S): 1: Routine screening mammogram BILATERAL in 1 year. Dictating Physician: CLARE VASQUEZ MD Electronically Signed by: CLARE VASQUEZ MD Dic Date/Time: 03/14/241426 Sign date/Time: 03/14/241426 Lizette [facility]ADISON IMG BI PROCEDURES from Last 3 Months or Most Recently Relevant to Health Maintenance Care Teams French Cord Binder Relationship Specialty Start Date End Date Leandra Mena MD PCP - General Internal Medicine 05/11/22
--- OUTSIDE RECORDS SUMMARY | 2024-09-04 17:18 | XMS_ITS | Encounter Summary ---
Author Organization [facility] Address [address] [place] [address] Care Team Providers Care Buffet Attendant Name Role Phone Unavailable Primary Care Provider Unavailabl e Encounter Details Date Type Department Care Team (Late st Contact Info) Description 04/17/2020 Lab Requisition EM Lab DOC: Jeremias Cochran [address] [place] [phone] Bernardo Ramirez PA-C [address] [place] [id number] Encounter for laboratory testing for COVID-19 virus [...] Comments SARS COV-2 RNA (COVID-19), QUAL Routine 04/17/2020 8:19 AM EDT Encounter for laboratory testing for COVID-19 virus [ICD-10-CM] documented in this encounter Results * SARS CoV-2 RNA (COVID-19), Qual (04/17/2020 8:19 AM EDT) Pathologist [facility] SARS CoV 2 RNA, Qual NOT DETECTED NOT DETECTED 04/19/2020 9:00 AM EDT [facility] Comment: A Not Detected (negative) test [...] providers and patients using the following websites: https://www.Bplats.Hyperoptic/home/Covid-19/HCP/QuestLDTP/ fact-sheet https://www.Bplats.Hyperoptic/home/Covid-19/Patients/QuestLDTP/ fact-sheet.html This test has been authorized by the FDA under an Emergency Use Authorization (EUA) for use by authorized laboratories. Due to the current public health emergency, [employer] is receiving a high volume of samples [...] about COVID-19 can be found at the [employer] website: www.Astonish Results.Hyperoptic/Covid19. Microbiology Nasopharyngeal swab / Unknown 04/17/2020 8:19 AM EDT 04/17/2020 8:19 AM EDT [facility] - 04/19/2020 9:00 AM EDT Performing Organization Information: ?Site ID: [id number] ?Name: [facility] ?Address: [address] [place] [address],[place] [address] ?Director: ALFREDO MACKEY MD [facility] at [facility] License number [id number] Bernardo Ramirez PA-C MICROBIOLOGY - [place] ORDERABLES Performing Organization Address City/State/[facility] Co de Phone Number [facility] documented in this encounter Visit Diagnoses Diagnosis Encounter for laboratory testing for COVID-19 virus documented in this encounter
--- OUTSIDE RECORDS SUMMARY | 2024-09-04 17:19 | XMS_ITS | Encounter Summary ---
Author Organization [facility] Address [address] [place] [phone] Care Team Providers Care Advisory Application Developer Name Role Phone Unavailable Primary Care Provider Unavailabl e Encounter Details Date Type Department Care Team (Late st Contact Info) Description 11/07/2023 Abstract Transplant Living Donor Center [address] [place] [address] Garrett Hall, PCT Social History Tobacco Use Types Packs/Day Years Used Date Smoking Tobacco: Never Assessed Comments Unknown Sex and Gender Information Value Date Recorded Sex Assigned at Not on file Legal Sex Female 8:40 AM EDT Gender Identity Not on file Sexual Orientation Not on file documented as of this encounter Last Filed Vital Signs Vital Sign Reading Time Taken Comments Blood Pressure - - Pulse - - Temperature - - Respiratory Rate - - Oxygen Saturation - - Inhaled Oxygen Concentration - - Weight 97.1 kg (214 lb) 11/07/2023 8:00 AM EDT Height 172.7 cm (5' 8 ) 11/07/2023 8:00 AM EDT Body Mass Index 32.54 11/07/2023 8:00 AM EDT documented in this encounter Plan of Treatment Not on file documented as of this encounter Visit Diagnoses Not on filedocumented in this encounter
--- OUTSIDE RECORDS SUMMARY | 2024-09-04 17:19 | XMS_ITS | Patient Health Record ---
Author Organization [facility] Address [address] [place] [address] Care Team Providers Care Dye Line Operator Name Role Phone Faby Enrique Unavailable [phone] Reason For Referral No Information Medications Medication SIG (Take, Route, Frequency, Duration) Notes Start Date End Date Status Multivitamins 1 ORAL daily for -3 [facility] 02/17/2014 Active Cryselle-28 0.3-30MG-MCG 1 ORAL daily for -3 [facility] 01/24 Active MetroGel-Vaginal 0.75% 1 Vaginal at bedt sandeep for -3 [facility] 02/17/2014 Active Problems Problem Type SNOMED Code ICD Code Onset Dates Problem Status W/U Status Risk Notes Problem Vulvovaginitis (disorder) (95968210) Unspecified vaginitis and vulvovaginitis (616.10) Active confirmed Diag Problem Moderate dysplasia of cervix (972953328) Moderate dysplasia of cervix (622.12) Active confirmed Diag Problem Gynecological examination normal (081304758987551) Routine gynecological examination (V72.31) Active confirmed Major Plan Of Treatment No Information Insurance Providers Payer Name Payer Address Payer Phone Subscriber Number Group Number Insured Name Patient Relationship to Insured Coverage Start Date Coverage End Date [employer] [place] [address] [place] [address] [id number] ELISSA CABA Self - patient is the insured
--- OUTSIDE RECORDS SUMMARY | 2024-09-04 17:19 | XMS_ITS ---
Author Organization [address] Address [address] [place] [phone] Care Team Providers Care Caregiver Assisted Living Name Role Phone Unavailable Primary Care Provider Unavailabl e Transplant Episode Liver Potential Donor [facility] ([place], [place]) - [facility] Referred on 11/07/2023 Marked as Deferred on 12/22/2023 Reason: Other Donors Being Evaluated Liver CoordinatorJannet Dias RN Phone: N/A Fax: N/A Email: N/A Care Team Name Role Phone Fax Email Jannet Dias RN Liver Coordinator N/A N/A N/ A WILBER Tomlin Associate Coordinator N/A N/A N/A Events Pre-Donation Referred: 11/07/2023
--- OUTSIDE RECORDS SUMMARY | 2024-09-04 17:19 | XMS_ITS | Encounter Summary ---
Author Organization [facility] Address [address] [place] [phone] Care Team Providers Care Chief Engineering Division Name Role Phone Unavailable Primary Care Provider Unavailabl e Reason for Visit * Reason Onset Date Comments Referral 11/21/2023 Liver living don or screening Encounter Details Date Type Department Care Team ([facility] st Contact Info) Description 11/21/2023 Telephone Transplant Living Donor Center [address] [place] [address] Sridevi Cole RN [address] [place] [phone] Referral (Liver living donor screening) Social History Tobacco Use Types Packs/Day Years Used Date Smoking Tobacco: Never Assessed Comments Unknown Sex and Gender Information Value Date Recorded Sex Assigned at Not on file Legal Sex Female 8:40 AM EDT Gender Identity Not on file Sexual Orientation Not on file documented as of this encounter Miscellaneous Notes * Telephone Encounter - Sridevi Cole RN - 11/21/2023 4:21 PM EDT Living Liver Donor Initial Referral Note: Agnes Perez is a 43 y.o. female who has contacted our referral line voluntarily in order to be considered as a potential living liver donor. ABO: O positive as per patient Not on File No past medical history on file. No family history on file. DONOR EVALUATION: REGISTRATION: Health Screening and Hypercoagulability Evaluation Donor Name: Agnes Perez 43 y.o. Sex: female Height: 5'8 Weight: 214 lbs BMI: 32.5 Ethnic Background: Medical Insurance: Yes, [facility] ABO: O positive Relationship to recipient: Donor's Co-worker's , she does not know her. Altruistic directed. Employed: [employer] How Lon years Marital Status: Single Children: 2 ( 20,8 y.o) Place of : [place] Citizen - Yes UNOS Listed: Yes Directed donation: Yes Date of : 1980 Social Security Number: (Not on file) Donor [address]: [address] [place] [address] If outside [place], do yo have a VISA? NA Surgical History (Including any anesthesia issues): - Appendectomy in 2021 - Gall Bladder removed in 2021 - section x1 Anesthesia concerns: No MEDICAL HISTORY: FAMILY MEDICAL HISTORY: Hypercoagulability Screening: History of venous thrombosis? (DVT, PE, Budd-Chiari syndrome, mesenteric and portal vein thrombus, retinal vein thrombosis): No History of arterial thrombosis (VT, CVA, TIA): No History of post-operative thromboembolic complications: No History of catheter-related thrombosis: No History of autoimmune disorders: No Currently taking hormonal medication (BCP, hormone replacement, hormone treatment, Tamoxifen or Raloxifene): Yes, Mirena History of loss (2 or more in first trimester,1 in second or third trimester or stillborn): No related complications (IUGR, pre-eclampsia or abruptio placentae: No Problems with reproduction/infertility: No Cardiac: No Hypertension: Yes , Borderline, not taking any medication High cholesterol: NO Migraine: NO Pulmonary (Sleep Apnea): No Endocrine: No Diabetes: No If yes, treatment: NA GI: No Integumentary: Yes, body tattoo, last one done in 2019, professionally done. Vascular: No Muscular Skeletal: No Kidney: No Blood Transfusion (Dates): No Exposure to TB: No Cancer: No Recent signs of infection: No Have you had COVID 19: Yes, twice When? 11/2019, 08/2021 COVID immunization: Yes Booster: Yes Medication Allergies: Yes, Penicillin - rash Food Allergies: No History of Psychiatric Illness, last 6 mo. (obtain release): -anxiety d/o : Yes, taking wellbutrin, PCP refilling her medication -depressive d/o : Yes -ptsd : No -self-injurious behavior : No -suicide attempt: No ADD Provider Name: One time seen a Psychiatrist- [facility] Provider contact:NA Mother Age: 63 Health Status/Illness: No health issues Father Age: 65 Health Status/Illness: NO health issues Maternal Grandmother Age: 84 Health Status/Illness: Pancreatitis Paternal Grandmother Age: 85 Health Status/Illness: Heart attack 10 years ago Maternal Grandfather Age: Health Status/Illness:Cancer but she does not know what type Paternal Grandfather: Health Status/Illness: Dementia Sibling #1 Age 39 - biological sister Health Status/Illness: No health issues Sibling #2 Age Health Status/Illness: Sibling #3 Age Health Status/Illness: Other History/Information/Comments: SOCIAL HISTORY HEALTH SCREENING Tobacco (if yes, how much): No Mammogram: Done 04/2023 - Negative Use of Other Tobacco Products (if yes, how much): No Date of last colonoscopy (if over 45): Never had one ETOH (if yes, how much): No PAP: Done 03/2023 - PRODUCT SAFETY MANAGER- Alfred Douglas Illegal or Recreational Drug (if yes, how much): No PCP Name: Dr. Evon Carcamo Sexual history: Not sexually active at this time Last seen date: within the last 2 weeks Dental cleanin08/2023 Travel Outside the country within the last 12 months (for work or vacation): No Travel within the [place] in last year: Yes, [place], [place] MEDICATIONS (PRESCRIPTION, OVER THE COUNTER, HERBS, SUPPLEMENTS) - Probiotic - Wellbutrin The following topics were discussed at this time: Motivation to donate Concept of Donor Advocacy and Donor Advocate Team Members Evaluation process: EKG, Echocardiogram, Cardiac Clearance, Hepatology Clearance, Surgical Clearance, Psychiatry Clearance, Social Work Clearance, MRI/MRCP and KAMINI Consult, coordinator consult Maintaining donor confidentiality Donor's ability to opt out at any point Patient and Transplant Center Responsibilities Factors that make a donor a candidate or precludes candidacy Time off of work Lost wages Support person Hospitalization stay Return to work Discussion regarding financial gain for organs being illegal Notes: All above topics discussed and opportunity to ask questions offered. All questions answered. Plan: Screening labs to be done [facility]btain Case# documented in this encounter Plan of Treatment Not on file documented as of this encounter Visit Diagnoses Not on filedocumented in this encounter
--- OUTSIDE RECORDS SUMMARY | 2024-09-04 17:19 | XMS_ITS | Clinical Summary ---
Author Organization [address] Address [address] [place] [phone] Care Team Providers Care Woolen Tester Name Role Phone Unavailable Primary Care Provider Unavailabl e Social History Tobacco Use Types Packs/Day Years Used Date Smoking Tobacco: Never Assessed Comments Unknown Sex and Gender Information Value Date Recorded Sex Assigned at Not on file Legal Sex Female 8:40 AM EDT Gender Identity Not on file Sexual Orientation Not on file Last Filed Vital Signs Vital Sign Reading Time Taken Comments Blood Pressure - - Pulse - - Temperature - - Respiratory Rate - - Oxygen Saturation - - Inhaled Oxygen Concentration - - Weight 97.1 kg (214 lb) 11/07/2023 8:00 AM EDT Height 172.7 cm (5' 8 ) 11/07/2023 8:00 AM EDT Body Mass Index 32.54 11/07/2023 8:00 AM EDT Plan of Treatment Health Maintenance Due Date Last Done Comments HIV screening 1995 Hepatitis C screening 2000 Cervical cancer screening 2003 Breast cancer screening 2022 Lipid disorder screening 2022 Tetanus adult (Td q 10,TDAP once) 12/11/2023 12/10/2013, 04/26/2004 Influenza vaccine 03/14/2024 07/25/2020, , 09/28/2016, Additional history exists Covid-19 vaccine series ( season) 2024 10/06/2020, 09/15/2020 Prediabetes Surveillance 11/29/2024 11/30/2023 RSV Discussion (1 - 1-dose 75+ series) 2057 Meningococcal Vaccine Aged Out No anuel fili eligible based on patient's age to complete this topic Pneumococcal Vaccine Aged Out No long er eligible based on patient's age to complete this topic Procedures Procedure Name Priority Date/Time Associated Diagnosis Comments HEMOGLOBIN A1C Routine 11/30/2023 7:19 AM EDT Willing to be liver donor Transplant donor evaluation from Last 3 Months or Most Recently Relevant to Health Maintenance Results * (ABNORMAL) Hemoglobin A1c (11/30/2023 7:19 AM EDT) Hemoglobin A1c 5.7(H) 4.0 - 5.6 % 11/30/2023 2:32 PM EDT [facility] OF [facility] MEDIC[facility] Comment: Hemoglobin A1c values of 5.7-6.4 % identify individuals with an increased risk for future diabetes and to whom the term pre-diabetes may be applied. ??Hemoglobin A1c values greater than 6.4% on more than one occasion are diagnostic of diabetes. Lowering HbA1c to below 7% is considered to reduce microvascular and neuropathic complications of diabetes. This boronate affinity Hb A1c method provides accurate analytical results in the presence of nearly all Hb variants. Hb F higher than 10% of total Hb may yield falsely low results. Conditions that shorten red cell survival, such as the presence of unstable hemoglobins like Hb SS, Hb CC, and Hb SC, or other causes of hemolytic anemia may yield falsely low results. Iron deficiency anemia may yield falsely high results. Estimated Average Glucose mg/dL 117 mg/dL 11/30/2023 2:32 PM EDT [facility] Comment: Estimated average glucose (eAG) is a calculated value designed to estimate ??the expected average blood glucose level throughout the day from a single ??measurement of ??glycated hemoglobin A1C (HbA1c) and follows the calculation proposed by the [place] [employer] (Diabetes Care 31: 1-6, 2008). It may have less accuracy in children, women and patients with certain erythrocyte disorders. Blood Venipuncture / Unknown 11/30/2023 7:19 AM EDT 11/30/2023 7:19 AM EDT us Linda Colmenares APRN LAB BLOOD ORDERABLES Final Result [facility]ATORY MEDICINE [address] [place] [id number], [facility] [phone] from Last 3 Months or Most Recently Relevant to Health Maintenance [place] [address] [place] [address] BS BS [employer]OR [employer] [place] [address]
--- OUTSIDE RECORDS SUMMARY | 2024-09-04 17:19 | XMS_ITS | Encounter Summary ---
Author Organization [facility] Address [address] [place] [phone] Care Team Providers Care Construction Project Mgr Name Role Phone Unavailable Primary Care Provider Unavailabl e Reason for Visit * Reason Comments Pre-evaluation Living Donor Liver Encounter Details Date Type Department Care Team (Late st Contact Info) Description 12/22/2023 Documentation Transplant Living Donor Center [address] [place] [address] Kalpana Ugalde RN [address] [place] [address] Social History Tobacco Use Types Packs/Day Years [...]
== END 2024-09-04 15:43 | disposition home or self-care (01) ==
PROVIDERS: PCP Physician Assistant Medical; Visit Provider Psychiatry & Neurology Neurology
DX: G25.0 Essential tremor (principal); G25.2 Other specified forms of tremor
CPT/HCPCS: 99204

== ENCOUNTER → 2024-09-04 14:47 | Outpatient (BNVA) | payer BC, SELFPAY | PROVIDERS: PCP Physician Assistant Medical; Visit Provider Psychiatry & Neurology Neurology ==

== ENCOUNTER → 2024-10-14 13:39 | Outpatient (REF) | payer BC, SELFPAY ==
--- NOTE | 2024-10-14 13:42 | CA_ITS ---
Transthoracic Echocardiogram Patient (Last, First, Middle): Agnes Perez, Gender: Female Date of : 1980 Age: 44 Procedure Date: 10/14/2024 Procedure Type: Transthoracic Echocardiogram Location: OP Height: 172.72 cm Weight: 88.45 kg BSA: 2.02 m2 Heart Rate: bpm BP: 128 / 86 mmHg Railways Assistant: FERMIN Referring MD: Evon MADISON Circuit Board Inspector: Fan Kay MD Symptoms: R07.9 - Chest pain, unspecified Study Quality: Adequate ECG Rhythm: Sinus Conclusions: - Essentially normal study Findings Left Ventricle Normal left ventricular size, thickness, and systolic function. The visually estimated ejection fraction is between 65-70%. Spectral Doppler is indicative of a normal filling pattern. Right Ventricle Normal right ventricular cavity size and systolic function. Atria Both atria are normal in size. There is no evidence of interatrial shunt. Aortic Valve Normal aortic valve structure and function. There is no aortic valve stenosis. There is no aortic valve regurgitation. Mitral Valve Normal mitral valve structure and function. There is trace mitral valve regurgitation. There is no mitral valve stenosis. Pulmonic Valve The pulmonic valve is likely normal. Tricuspid Valve Normal tricuspid valve structure. There is trace tricuspid valve regurgitation. The right ventricular systolic pressure is normal. The right ventricular systolic pressure is 15 mmHg. Normal right atrial pressure. There is no evidence of pulmonary hypertension. Great Vessels All visible segments of the aorta are normal in size. The pulmonary artery was not well visualized. Venous The inferior vena cava is normal in size and collapses greater than 50% with inspiration. Pericardium/Pleural There is no evidence of pericardial effusion. Prior Study Comparison No prior study available for comparison. Measurements 2D Linear Measurements IVSd: 0.80 0.6-0.9/0.6-1.0 cm LVIDd: 4.84 3.9-5.3/4.2-5.9 cm LVIDd Index: 2.40 2.4-3.2/2.2-3.1 cm/m2 LVIDs: 2.36 2.0-3.6 cm LVPWd: 0.78 0.7-1.1 cm LA Diam: 3.40 2.7-3.8/3.0-4.0 cm LAIDs Index: 1.68 1.5-2.3 cm/m2 LV Mass: 157.66 67-162/88-224 g LV Mass Index: 78.05 43-95/49-115 g/m2 LVOT Diam: 2.10 3.0+(-)1.3 cm 2D Systolic Function EF 4C: 66.40 >55% EF 2C: 66.90 >55% EF BiP: 66.40 >55% Mitral Valve MV Pk E: 0.73 MV PK A: 0.54 MV Decel Time: 151.00 E/A: 1.40 E'Lateral: 12.00 E'Medial: 7.62 E/E' Med: 9.60 E/E' Lat: 6.10 PHT: 44.00 MVA PHT: 5.00 Decel [place]: 4.84 Aortic Valve AoV Pk Roberto: 1.55 AoV Mn Roberto: 1.15 AoV VTI: 0.31 AoV Pk Grad: 10.00 Aov Mn Grad: 6.00 MUNA Cont.VTI: 2.75 LVOT LVOT Pk Roberto: 1.32 LVOT Mn Roberto: 0.89 LVOT VTI: 0.25 LVOT Pk Grad: 7.00 LVOT Mn Grad: 4.00 LVOT Diam: 2.10 LVOT Area: 3.46 Diastolic Function MV Pk E: 0.73 MV Pk A: 0.54 E/A: 1.40 E'Medial: 7.62 E/E' Med: 9.60 E' Laterial: 12.00 E/E' Lat: 6.10 Right Ventricle TAPSE (mm): 25.20 TVS' Roberto: 12.60 Tricuspid Valve TR Pk Roberto: 1.74 TR Pk Grad: 12.00 RA Press: 3.00 RVSP: 15.00 Great Vessels Aorta Sinus of Valsalva: 3.12 2.0-3.[address] Ridge: 2.50 1.7-3.4 cm Ao Asc: 3.30 2.1-3.4 cm Ao Arch: 2.90 Updated in Other Vendor System with Status of Final Fan Kay MD electronically signed on 10/14/2024 6:07:10 PM with status of Final
--- OUTSIDE RECORDS SUMMARY | 2024-10-14 16:08 | XMS_ITS | Encounter Summary ---
Author Organization [facility] Address [address] [place] [address] Care Team Providers Care It Desktop Support Specialist Name Role Phone Unavailable Primary Care Provider Unavailabl e Encounter Details Date Type Department Care Team (Late st Contact Info) Description 04/17/2020 Lab Requisition EM Lab DOC: Jeremias Cochran [address] [place] [phone] Bernardo Ramirez PA-C [address] [place] [address] [phone] Encounter for laboratory testing for COVID-19 virus [...] Procedure Name Priority Date/Time Associated Diagnosis Comments (REPORT) SARS COV-2 RNA (COVID-19), QUAL Routine 04/17/2020 8:19 AM EDT Encounter for laboratory testing for COVID-19 virus [ICD-10-CM] documented in this encounter Results * SARS CoV-2 RNA (COVID-19), Qual (04/17/2020 8:19 AM EDT) Pathologist [facility] SARS CoV 2 RNA, Qual NOT DETECTED NOT DETECTED 04/19/2020 9:00 AM EDT [facility] Comment: A Not Detected (negative) [...] providers and patients using the following websites: https://www.[employer].Medigram/home/Covid-19/HCP/QuestLDTP/ fact-sheet https://www.EthicalSuperstore.Com/home/Covid-19/Patients/QuestLDTP/ fact-sheet.html This test has been authorized by the FDA under an Emergency Use Authorization (EUA) for use by authorized laboratories. Due to the current public health emergency, [facility] [employer] [facility] is receiving a high volume of samples [...] about COVID-19 can be found at the [employer] website: www.Lyxia.Medigram/Covid19. Microbiology Nasopharyngeal swab / Unknown 04/17/2020 8:19 AM EDT 04/17/2020 8:19 AM EDT [facility] - 04/19/2020 9:00 AM EDT Performing Organization Information: ?Site ID: [id number] ?Name: [employer] ?Address: [address] [place] [address],[place] [address] ?Director: ALFREDO MACKEY MD Performed at [facility] License number [id number] Bernardo Ramirez PA-C BODY FLUIDS AND S TOOLS ORDERABLES Performing Organization Address City/State/[facility] Co de Phone Number [facility] documented in this encounter Visit Diagnoses Diagnosis Encounter for laboratory testing for COVID-19 virus documented in this encounter
--- OUTSIDE RECORDS SUMMARY | 2024-10-14 16:08 | XMS_ITS | Encounter Summary ---
Author Organization [facility] Address [address] [place] [phone] Care Team Providers Care Manager Office Services Name Role Phone Unavailable Primary Care Provider Unavailabl e Reason for Visit * Reason Onset Date Comments Other 10/11/2024 Back up Encounter Details Date Type Department Care Team (Late st Contact Info) Description 10/11/2024 Telephone Transplant [facility] [address] [place], [place] [phone] Jannet Dias, RN Other (Back up) Social History Tobacco Use Types Packs/Day Years Used Date Smoking Tobacco: Never Assessed Comments Unknown Sex and Gender Information Value Date Recorded Sex Assigned at Not on file Legal Sex Female 8:40 AM EDT Gender Identity Not on file Sexual Orientation Not on file documented as of this encounter Miscellaneous Notes * Telephone Encounter - Jannet Dias RN - 10/11/2024 1:36 PM EST Call placed to donor to check in and provide update. She was advised that the other donor remains in evaluation, however we are checking in should we need to proceed with another donor in the future.She verbalized understanding and gratitude about this information. documented in this encounter Plan of Treatment Not on file documented as of this encounter Visit Diagnoses Not on filedocumented in this encounter
--- OUTSIDE RECORDS SUMMARY | 2024-10-14 16:08 | XMS_ITS | Clinical Summary ---
Author Organization [facility] Address [address] [place] [address] Care Team Providers Care Chief Engineering Division Name Role Phone Unavailable Primary Care Provider Unavailabl e Encounters Date Type Department Care Team Description 09/04/2024 Transcribe Orders [facility] PRIMARY CARE SCAN Evon Carcamo PA Epistaxis [...]
--- OUTSIDE RECORDS SUMMARY | 2024-10-14 16:08 | XMS_ITS | Clinical Summary ---
Author Organization [facility] Address [address] [place] [address] Care Team Providers Care Wharf Hand Name Role Phone Leandra Mena MD Primary Care Provider [phone] Surgical History Surgery Date Site/Laterality Comments OTHER SURGICAL HISTORY 04/27/2022 PROCEDURE: [place] LAPAROSCOPIC APPENDECTOMY; COMMENT: Dr Hawk Giles Social History Tobacco Use Types Packs/Day Years Used Date Smoking Tobacco: Never Assessed Comments Unknown Sex and Gender Information Value Date Recorded Sex Assigned at Not on file Legal Sex Female 10:21 PM EST Gender Identity Not on file Sexual Orientation [...] patient's age to complete this topic Meningococcal B Vacine Aged Out No lo nger eligible based on patient's age to complete [...] Procedure Name Priority Date/Time Associated Diagnosis Comments [facility] SCREENING DIGITAL Routine 03/14/2024 2:27 PM EDT Encounter for screening mammogram for malignant neoplasm of breast from Last 3 Months or Most Recently Relevant to Health Maintenance Results * [facility] SCREENING DIGITAL (03/14/2024 2:27 PM EDT) Anatomical Region Laterality Modality Mammography 03/14/2024 1:26 PM EDT Narrative 03/14/2024 2:27 PM EDT [facility] Diagnostic Imaging Department [address] [place] [address] Patient: ??AGNES PEREZ ?/Age/Sex: 1980 - 43 - F Unit#: ??[id number] ? Location/Status: ??SPDIMAM/REG CLI ? Mnemonic/Ordering Site: ??DIGSC/SPMAM Ordering Physician: ??LIZETTE YOUSSEF PA-C [facility] Screening Digital - 03/14/24 - 1345 Report Status:Signed EXAM: [facility] Screening Digital EXAM DATE AND TIME: 03/14/2024 1:46 PM HISTORY: ??Screening. Mother had breast carcinoma at age 58. COMPARISON: ??03/07/23, 02/07/22, 08/09/21, 02/01/21 TECHNIQUE: Bilateral digital breast tomosynthesis was performed in the CC and MLO projections. Computer aided detection with [employer] 3D 3.1 was employed. TISSUE DENSITY: c. [...] by: ??CLARE VASQUEZ MD Dic Date/Time: ??03/14/24 142 Sign date/Time: ??03/14/24 142 Procedure Note Clare Vasquez MD - 05/29/2024 [facility] Diagnostic Imaging Department [address] [place] [address] Patient: AGNES PEREZ /Age/Sex: 1980 - 43 - F Unit#: [id number] Location/Status: SPDIMAM/REG CLI Mnemonic/Ordering Site: [facility] Ordering Physician: LIZETTE YOUSSEF PA-C [facility] Screening Digital - 03/14/24 - 1345 Report Status:Signed EXAM: [facility] Screening Digital EXAM DATE AND TIME: 03/14/2024 1:46 PM HISTORY: Screening. Mother had breast carcinoma at age 58. COMPARISON: 03/07/23, 02/07/22, 08/09/21, 02/01/21 TECHNIQUE: Bilateral digital breast tomosynthesis was performed in the CCand MLO projections. Computer aided detection with [employer] 3D 3.1was employed. TISSUE DENSITY: c. The [...] MD Dic Date/Time: 03/14/241426 Sign date/Time: 03/14/241426 us Lizette MADISON IMG BI PROCEDURES Final Resul t from Last 3 Months or Most Recently Relevant to Health Maintenance Care Teams Wharf Hand Relationship Specialty Start Date End Date Leandra Mena MD PCP - General Internal Medicine 05/11/22
--- OUTSIDE RECORDS SUMMARY | 2024-10-14 16:08 | XMS_ITS | Encounter Summary ---
Author Organization [facility] Address [address] [place] [phone] Care Team Providers Care Network Operations Lead Name Role Phone Unavailable Primary Care Provider Unavailabl e Reason for Visit * Reason Comments Pre-evaluation Living Donor Liver Encounter Details Date Type Department Care Team (Late st Contact Info) Description 12/22/2023 Documentation [facility] [address] [place] [address] Kalpana Ugalde RN [address] [place] [address] Social History Tobacco Use Types Packs/Day Years [...]
--- OUTSIDE RECORDS SUMMARY | 2024-10-14 16:08 | XMS_ITS | Clinical Summary ---
Author Organization [address] Address [address] [place] [phone] Care Team Providers Care Concierge Manager Name Role Phone Unavailable Primary Care Provider Unavailabl e Encounters Date Type Department Care Team Description 10/11/2024 Telephone [facility]plant [facility] [address] [place] [address], [address] [place], [place] [phone] Jannet Dias RN Other (Back up) from Last 3 Months Social History Tobacco [...] age to complete this topic Pneumococcal Vaccine (2 - 49 years) Aged Out No longer eligible based on [...] - 5.6 % 11/30/2023 2:32 PM EDT COUNTS INCLUDE 234 BEDS AT THE [facility] DEPARTMENT OF LABORATORY MEDICINE Comment: Hemoglobin A1c [...] mg/dL 117 mg/dL 11/30/2023 2:32 PM EDT COUNTS INCLUDE 234 BEDS AT THE [facility] DEPARTMENT OF LABORATORY MEDICINE Comment: Estimated average glucose (eAG) is a calculated value designed to estimate ??the expected average blood glucose level throughout the day from a single ??measurement of ??glycated hemoglobin A1C (HbA1c) and follows the calculation proposed by the [place] [employer] (Diabetes Care 31: 1-6, 2008). It may have less accuracy in children, women and patients with certain erythrocyte disorders. Blood Venipuncture / Unknown 11/30/2023 7:19 AM EDT 11/30/2023 7:19 AM EDT Linda Maranda Colmenares APRN LAB BLOOD ORDERABLES Final Result [facility] DEPARTMENT OF LABORATORY MEDICINE [address] [place] [address], [facility] [phone] from Last 3 Months or Most Recently Relevant to Health Maintenance Insurance BCBS BCBS BCBS [employer] [place] [address]
--- OUTSIDE RECORDS SUMMARY | 2024-10-14 16:08 | XMS_ITS | Encounter Summary ---
Author Organization [facility] Address [address] [place] [address] Care Team Providers Care Occupational Therapist Home Based Name Role Phone Unavailable Primary Care Provider Unavailabl e Encounter Details Date Type Department Care Team (Late st Contact Info) Description 08/11/2020 Lab Requisition EM Lab DOC: Jeremias Cochran [address] [place] [phone] Bernardo Ramirez PA-C [address] [place] [phone] Encounter for laboratory testing for COVID-19 virus [...] (REPORT) SARS COV-2 RNA (COVID-19), QUAL Routine 08/11/2020 8:07 AM EST Encounter for laboratory testing for COVID-19 virus [ICD-10-CM] documented in this encounter Results * SARS CoV-2 RNA (COVID-19), Qual (08/11/2020 8:07 AM EST) Pathologist [facility] SARS CoV 2 RNA, Qual NOT DETECTED NOT DETECTED 08/12/2020 10:00 PM EST [facility] Comment: A Not Detected (negative) test [...] providers and patients using the following websites: https://www.Boardwalktech.Marakana/home/Covid-19/HCP/NAAT/fact-sheet2 https://www.Boardwalktech.Marakana/home/Covid-19/Patients/NAAT/ fact-sheet2 This test has been authorized by the FDA under an Emergency Use Authorization (EUA) for use by authorized laboratories. Due to the current public health emergency, [employer] is receiving a high volume of samples [...] about COVID-19 can be found at the [employer] website: www.trend.ly/Covid19. Microbiology Nasopharyngeal swab / Unknown 08/11/2020 8:07 AM EST 08/11/2020 8:07 AM EST Narrative [facility] - 08/12/2020 10:00 PM EST Performing Organization Information: ?Site ID: [id number] ?Name: [employer] ?Address: [address] [place] [address] [address] [facility],[place] [address] ?Director: ALFREDO MACKEY MD [facility] License number [id number] Bernardo Ramirez PA-C BODY FLUIDS AND S TOOLS ORDERABLES [facility] documented in this encounter Visit Diagnoses Diagnosis Encounter for laboratory testing for COVID-19 virus documented in this encounter
--- OUTSIDE RECORDS SUMMARY | 2024-10-14 16:08 | XMS_ITS | Encounter Summary ---
Author Organization [facility] Address [address] [place] [address] Care Team Providers Care Quality Compliance Coordinator Name Role Phone Unavailable Primary Care Provider Unavailabl e Encounter Details Date Type Department Care Team (Late st Contact Info) Description 03/03/2020 Lab Requisition EM Lab DOC: Jeremias Cochran [address] [place] [phone] Bernardo Ramirez PA-C [address] [place] [phone] Encounter for laboratory testing for COVID-19 virus [...] (REPORT) SARS COV-2 RNA (COVID-19), QUAL Routine 03/03/2020 12:07 PM EDT Encounter for laboratory testing for COVID-19 virus [ICD-10-CM] documented in this encounter Results * SARS CoV-2 RNA (COVID-19), Qual (03/03/2020 12:07 PM EDT) Pathologist [facility] SARS CoV 2 RNA, Qual NOT DETECTED NOT DETECTED 03/04/2020 5:00 PM EDT [facility] Comment: A Not [...] providers and patients using the following websites: https://www.Alawar Entertainment.InfoReach/home/Covid-19/HCP/NAAT/fact-sheet2 https://www.[employer].InfoReach/home/Covid-19/Patients/NAAT/ fact-sheet2 This test has been authorized by the FDA under an Emergency Use Authorization (EUA) for use by authorized laboratories. Due to the current public health emergency, [employer] is receiving a high volume of samples [...] about COVID-19 can be found at the [employer] website: www.Ingrian Networks/Covid19. Microbiology Nasopharyngeal swab / Unknown 03/03/2020 12:07 PM EDT 03/03/2020 12:07 PM EDT Narrative [facility] - 03/04/2020 5:00 PM EDT Performing Organization Information: ?Site ID: [id number] ?Name: [employer] ?Address: [address] [place] [address] [address] [address] ?Director: ALFREDO MACKEY MD [facility] at [facility] number [id number] Bernardo Ramirez PA-C BODY FLUIDS AND S TOOLS ORDERABLES [facility] documented in this encounter Visit Diagnoses Diagnosis Encounter for laboratory testing for COVID-19 virus documented in this encounter
--- OUTSIDE RECORDS SUMMARY | 2024-10-14 16:08 | XMS_ITS | Encounter Summary ---
Author Organization [facility] Address [address] [place] [address] Care Team Providers Care Billet Shearer Name Role Phone Unavailable Primary Care Provider Unavailabl e Encounter Details Date Type Department Care Team (Late st Contact Info) Description 06/16/2020 Lab Requisition EM Lab DOC: Jeremias Cochran [address] [place] [phone] Bernardo Ramirez PA-C [address] [place] [phone] Encounter for laboratory testing for COVID-19 virus [...] (REPORT) SARS COV-2 RNA (COVID-19), QUAL Routine 06/16/2020 2:46 PM EST Encounter for laboratory testing for COVID-19 virus [ICD-10-CM] documented in this encounter Results * SARS CoV-2 RNA (COVID-19), Qual (06/16/2020 2:46 PM EST) Pathologist [facility] SARS CoV 2 RNA, Qual NOT DETECTED NOT DETECTED 06/17/2020 10:00 PM EST [facility] Comment: A Not Detected (negative) test result [...] providers and patients using the following websites: https://www.1SDK.nivio/home/Covid-19/HCP/QuestLDTP/ fact-sheet https://www.Ivaldi/home/Covid-19/Patients/QuestLDTP/ fact-sheet.html This test has been authorized by the FDA under an Emergency Use Authorization (EUA) for use by authorized laboratories. Due to the current public health emergency, [employer] is receiving a high volume of samples [...] about COVID-19 can be found at the [employer] website: www.[employer].nivio/Covid19. Microbiology Nasopharyngeal swab / Unknown 06/16/2020 2:46 PM EST 06/16/2020 2:46 PM EST Narrative [facility] - 06/17/2020 10:00 PM EST Performing Organization Information: ?Site ID: [id number] ?Name: [employer] ?Address: [address] [place] [address],[place] [address] ?Director: ALFREDO MACKEY MD [facility]formed at [facility] License number [id number] Bernardo Ramirez PA-C BODY FLUIDS AND S TOOLS ORDERABLES Performing Organization Address City/State/[facility] Co de Phone Number [facility] documented in this encounter Visit Diagnoses Diagnosis Encounter for laboratory testing for COVID-19 virus documented in this encounter
--- OUTSIDE RECORDS SUMMARY | 2024-10-14 16:08 | XMS_ITS | Encounter Summary ---
Author Organization [facility] Address [address] [place] [address] Care Team Providers Care Four Slide Operator Name Role Phone Unavailable Primary Care Provider Unavailabl e Encounter Details Date Type Department Care Team (Late st Contact Info) Description 06/26/2020 Lab Requisition EM Lab DOC: Jeremias Cochran [address] [place] [phone] Bernardo Ramirez PA-C [address] [place] [phone] Encounter for laboratory testing for COVID-19 virus [...] (REPORT) SARS COV-2 RNA (COVID-19), QUAL Routine 06/26/2020 8:33 AM EST Encounter for laboratory testing for COVID-19 virus [ICD-10-CM] documented in this encounter Results * SARS CoV-2 RNA (COVID-19), Qual (06/26/2020 8:33 AM EST) Pathologist [facility] SARS CoV 2 RNA, Qual NOT DETECTED NOT DETECTED 06/28/2020 9:00 PM EST [facility] Comment: A Not Detected (negative) [...] providers and patients using the following websites: https://www.Cynergen.NewYork60.com/home/Covid-19/HCP/QuestLDTP/ fact-sheet https://www.Mobi [employer]/home/Covid-19/Patients/QuestLDTP/ fact-sheet.html This test has been authorized by the FDA under an Emergency Use Authorization (EUA) for use by authorized laboratories. Due to the current public health emergency, [employer] is receiving a high volume of samples [...] about COVID-19 can be found at the [employer] website: www.Riffyn.NewYork60.com/Covid19. Microbiology Nasopharyngeal swab / Unknown 06/26/2020 8:33 AM EST 06/26/2020 8:33 AM EST [facility] - 06/28/2020 9:00 PM EST Performing Organization Information: ?Site ID: [id number] ?Name: [employer] ?Address: [address] [place] [address],[place] [address] ?Director: ALFREDO MACKEY MD Performed at [facility] License number [id number] Bernardo Ramirez PA-C BODY FLUIDS AND S TOOLS ORDERABLES Performing Organization Address City/State/[facility] Co de Phone Number [facility] documented in this encounter Visit Diagnoses Diagnosis Encounter for laboratory testing for COVID-19 virus documented in this encounter
--- OUTSIDE RECORDS SUMMARY | 2024-10-14 16:08 | XMS_ITS | Encounter Summary ---
Author Organization [facility] Address [address] [place] [address] Care Team Providers Care Vine Fruit Farming Supervisor Name Role Phone Unavailable Primary Care Provider Unavailabl e Encounter Details Date Type Department Care Team (Late st Contact Info) Description 07/16/2020 Lab Requisition EM LAB DOC CESAR [address] [place] [phone] Bernardo Ramirez PA-C [address] [place] [address] Encounter for laboratory testing for COVID-19 virus [...] (REPORT) SARS COV-2 RNA (COVID-19), QUAL Routine 07/16/2020 1:50 PM EST Encounter for laboratory testing for COVID-19 virus [ICD-10-CM] documented in this encounter Results * SARS CoV-2 RNA (COVID-19), Qual (07/16/2020 1:50 PM EST) Pathologist [facility] SARS CoV 2 RNA, Qual NOT DETECTED NOT DETECTED 07/18/2020 5:00 PM EST [facility] Comment: [...] providers and patients using the following websites: https://www.TROVE Predictive Data Science.Shenzhouying Software Technology/home/Covid-19/HCP/NAAT/fact-sheet2 https://www.TROVE Predictive Data Science.Shenzhouying Software Technology/home/Covid-19/Patients/NAAT/ fact-sheet2 This test has been authorized by the FDA under an Emergency Use Authorization (EUA) for use by authorized laboratories. Due to the current public health emergency, [employer] is receiving a high volume of samples [...] about COVID-19 can be found at the [employer] website: www.SolarVista Media/Covid19. Microbiology Nasopharyngeal swab / Unknown 07/16/2020 1:50 PM EST 07/16/2020 1:50 PM EST Narrative [facility] - 07/18/2020 5:00 PM EST Performing Organization Information: ?Site ID: [id number] ?Name: [employer] ?Address: [address] [place] [address] [address]LO[address],[place] [address] ?Director: ALFREDO MACKEY MD Performed at [facility] License number [id number] Bernardo Ramirez PA-C BODY FLUIDS AND S TOOLS ORDERABLES [facility] documented in this encounter Visit Diagnoses Diagnosis Encounter for laboratory testing for COVID-19 virus documented in this encounter
--- OUTSIDE RECORDS SUMMARY | 2024-10-14 16:08 | XMS_ITS | Encounter Summary ---
Author Organization [facility] Address [address] [place] [phone] Care Team Providers Care Commercial Airline Pilot Name Role Phone Unavailable Primary Care Provider Unavailabl e Reason for Visit * Reason Onset Date Comments Referral 11/21/2023 Liver living don or screening Encounter Details Date Type Department Care Team ([facility] st Contact Info) Description 11/21/2023 Telephone Transplant Living Don[facility] Center [address] [place] [address] Sridevi Cole RN [address] [place], [place] [phone] Referral (Liver living donor screening) Social History [...] BMI: 32.5 Ethnic Background: Medical Insurance: Yes, [place] [facility] [[email or web address]] ABO: O positive Relationship to recipient: Donor's Co-worker's , she does not know her. Altruistic directed. Employed: [employer] How Lon years Marital Status: Single Children: 2 ( 20,8 y.o) Place of : [place] Citizen - Yes UNOS Listed: Yes Directed donation: Yes Date of : 1980 Social Security Number: (Not on file) Donor Address: [address] [place] [address] If outside [place], do yo have a VISA? NA Surgical History (Including any anesthesia issues): - Appendectomy in 2021 - Gall Bladder removed in 2021 - section x1 Anesthesia concerns: No MEDICAL HISTORY: FAMILY MEDICAL HISTORY: Hypercoagulability Screening: History of venous thrombosis? (DVT, PE, Budd-Chiari syndrome, mesenteric and portal vein thrombus, retinal vein thrombosis): No History of arterial thrombosis ([place], CVA, TIA): No History of post-operative thromboembolic [...] Provider Name: One time seen a Psychiatrist- [facility] Provider contact:NA Mother Age: 63 [...] how much): No PAP: Done 03/2023 - ASSEMBLER MECHANICAL ORDNANCE- Alfred Douglas Illegal or Recreational Drug (if [...]
--- OUTSIDE RECORDS SUMMARY | 2024-10-14 16:08 | XMS_ITS | Patient Health Record ---
Author Organization [facility] Address [address] [place] [address] Care Team Providers Care Crystal Machining Coordinator Name Role Phone Faby Enrique Unavailable [phone] Reason For Referral No Information Medications Medication SIG (Take, Route, Frequency, Duration) Notes Start Date End Date Status Multivitamins 1 ORAL daily for -3 [facility]- 02/17/2014 Active Cryselle-28 0.3-30MG-MCG 1 ORAL daily for -3 [facility]- 01/24 Active MetroGel-Vaginal 0.75% 1 Vaginal at bedt sandeep for -3 [facility]- 02/17/2014 Active Problems Problem Type SNOMED Code ICD Code Onset Dates Problem Status W/U Status Risk Notes Problem Vulvovaginitis (disorder) (83999925) Unspecified vaginitis and vulvovaginitis (616.10) Active confirmed Diag Problem Moderate dysplasia of cervix (461435997) Moderate dysplasia of cervix (622.12) Active confirmed Diag Problem Gynecological examination normal (499929162699762) Routine gynecological examination (V72.31) Active confirmed Major Plan Of Treatment No Information Insurance Providers Payer Name Payer Address Payer Phone Subscriber Number Group Number Insured Name Patient Relationship to Insured Coverage Start Date Coverage End Date [employer] [place] [address] [place] [address] [phone] [id number] ELISSA CABA Self - patient is the insured
--- OUTSIDE RECORDS SUMMARY | 2024-10-14 16:08 | XMS_ITS | Encounter Summary ---
Author Organization [facility] Address [address] [place] [address] Care Team Providers Care Software Testing Specialist Name Role Phone Unavailable Primary Care Provider Unavailabl e Encounter Details Date Type Department Care Team (Late st Contact Info) Description 05/19/2020 Lab Requisition EM Lab DOC: Jeremias Cochran [address] [place] [phone] Bernardo Ramirez PA-C [address] [place] [address] [phone] Encounter for laboratory testing for COVID-19 virus [...] (REPORT) SARS COV-2 RNA (COVID-19), QUAL Routine 05/19/2020 2:48 PM EDT Encounter for laboratory testing for COVID-19 virus [ICD-10-CM] documented in this encounter Results * SARS CoV-2 RNA (COVID-19), Qual (05/19/2020 2:48 PM EDT) Pathologist [facility] SARS CoV 2 RNA, Qual NOT DETECTED NOT DETECTED 05/20/2020 11:00 PM EDT [facility] Comment: A Not Detected (negative) test [...] providers and patients using the following websites: https://www.VCNC.SocialGuides/home/Covid-19/HCP/QuestLDTP/ fact-sheet https://www.Around Knowledge/home/Covid-19/Patients/QuestLDTP/ fact-sheet.html This test has been authorized by the FDA under an Emergency Use Authorization (EUA) for use by authorized laboratories. Due to the current public health emergency, [employer] is receiving a high volume of samples [...] about COVID-19 can be found at the [employer] website: www.DRO Biosystems.SocialGuides/Covid19. Microbiology Nasopharyngeal swab / Unknown 05/19/2020 2:48 PM EDT 05/19/2020 2:48 PM EDT [facility] - 05/20/2020 11:00 PM EDT Performing Organization Information: ?Site ID: [id number] ?Name: [employer] ?Address: [address] [place] [address],[facility] [place] [address] ?Director: ALFREDO MACKEY MD Performed at [facility] License number [id number] Bernardo Ramirez PA-C BODY FLUIDS AND S TOOLS ORDERABLES Performing Organization Address City/State/[facility] Co de Phone Number [facility] documented in this encounter Visit Diagnoses Diagnosis Encounter for laboratory testing for COVID-19 virus documented in this encounter
--- OUTSIDE RECORDS SUMMARY | 2024-10-14 16:08 | XMS_ITS | Encounter Summary ---
Author Organization [facility] Address [address] [place] [phone] Care Team Providers Care Mannequin Sander And Finisher Name Role Phone Unavailable Primary Care Provider Unavailabl e Encounter Details Date Type Department Care Team (Late st Contact Info) Description 11/07/2023 Abstract Transplant Living [facility] [address] [place] [address] [place], PCT Social History Tobacco Use [...]
--- OUTSIDE RECORDS SUMMARY | 2024-10-14 16:08 | XMS_ITS ---
Author Organization [address] Address [address] [place] [phone] Care Team Providers Care County Judge Name Role Phone Unavailable Primary Care Provider Unavailabl e Transplant Episode Liver Potential Donor [facility] ([place], [place]) - CTYN Referred on 11/07/2023 Marked as Deferred on 12/22/2023 Reason: Other Donors Being Evaluated Liver CoordinatorJannet Dias RN Phone: N/A Fax: N/A Email: N/A Care Team Name Role Phone Fax Email Jannet Dias RN Liver Coordinator N/A N/A N/ A WILBER Tomlin Associate Coordinator N/A N/A N/A Events Pre-Donation Referred: 11/07/2023
--- OUTSIDE RECORDS SUMMARY | 2024-10-14 16:08 | XMS_ITS | Clinical Summary ---
Author Organization [facility] Address [address] [place] [address] Care Team Providers Care Clerical Transcriber Name Role Phone Bernardo Pisano PA-C Primary Care Provider [phone] Medications No known medications Active Problems No [...] age to complete this topic Care Teams Clerical Transcriber Relationship Specialty Start Date End Date Bernardo Pisano PA-C [address] [place] [address] PCP - General Physician Liberal Arts And Humanities Chair 04/26/22
== END ==
LOC: HO.CARD 13:39
PROVIDERS: PCP Physician Assistant Medical; Visit Provider Physician Assistant Medical
DX: R07.9 Chest pain, unspecified (principal); R55 Syncope and collapse
CPT/HCPCS: 93306

== ENCOUNTER → 2024-10-14 13:42 | Outpatient (BNV) | payer BC, SELFPAY | PROVIDERS: PCP Physician Assistant Medical; Visit Provider Internal Medicine Cardiovascular Disease | DX: R07.9 Chest pain, unspecified (principal) | CPT/HCPCS: 93306 ==

== ENCOUNTER 2024-11-19 09:16 | Outpatient (REF) | payer BC, SELFPAY ==
--- OUTSIDE RECORDS SUMMARY | 2024-11-19 10:16 | XMS_ITS | Encounter Summary ---
Author Organization [facility] Address [address] [place] [address] Care Team Providers Care Interior Assemblies Installer Name Role Phone Unavailable Primary Care Provider Unavailabl e Encounter Details Date Type Department Care Team (Late st Contact Info) Description 08/11/2020 Lab Requisition EM Lab DOC: Jeremias Cochran [address] [place] [phone] Bernardo Ramirez PA-C [address] [place] [phone] Encounter for laboratory testing for COVID-19 virus [...] (COVID-19), Qual (08/11/2020 8:07 AM EST) Pathologist [facility] SARS CoV 2 RNA, Qual NOT DETECTED NOT DETECTED 08/12/2020 10:00 PM EST [facility] Comment: A Not Detected (negative) test [...] providers and patients using the following websites: https://www.Calendly.Remedy Systems/home/Covid-19/HCP/NAAT/fact-sheet2 https://www.Calendly.Remedy Systems/home/Covid-19/Patients/NAAT/ fact-sheet2 This test has been authorized by the FDA under an Emergency Use Authorization (EUA) for use by authorized laboratories. Due to the current public health emergency, [employer] is receiving a high volume of samples [...] about COVID-19 can be found at the [employer] website: www.Yours Florally/Covid19. Microbiology Nasopharyngeal swab / Unknown 08/11/2020 8:07 AM EST 08/11/2020 8:07 AM EST Narrative [facility] - 08/12/2020 10:00 PM EST Performing Organization Information: ?Site ID: [id number] ?Name: [employer] ?Address: [address] [place] [address] [address] [facility],[place] [address] ?Director: ALFREDO MACKEY MD Performed at [facility] License number [id number] Bernardo Ramirez PA-C BODY FLUIDS AND S TOOLS ORDERABLES [facility] documented in this encounter Visit Diagnoses Diagnosis Encounter for laboratory testing for COVID-19 virus documented in this encounter
--- OUTSIDE RECORDS SUMMARY | 2024-11-19 10:16 | XMS_ITS | Encounter Summary ---
Author Organization [facility] Address [address] [place] [address] Care Team Providers Care Cso Name Role Phone Unavailable Primary Care Provider Unavailabl e Encounter Details Date Type Department Care Team (Late st Contact Info) Description 05/19/2020 Lab Requisition EM Lab DOC: Jeremias Cochran [address] [place] [phone] Bernardo Ramirez PA-C [address] [place] [address] [phone] Encounter for laboratory testing for COVID-19 virus [...] (COVID-19), Qual (05/19/2020 2:48 PM EDT) Pathologist [facility] SARS CoV 2 RNA, Qual NOT DETECTED NOT DETECTED 05/20/2020 11:00 PM EDT [facility] Comment: A Not Detected (negative) [...] providers and patients using the following websites: https://www.LYFE Kitchen.EVRST/home/Covid-19/HCP/QuestLDTP/ fact-sheet https://www.HoneyComb Corporation/home/Covid-19/Patients/QuestLDTP/ fact-sheet.html This test has been authorized by the FDA under an Emergency Use Authorization (EUA) for use by authorized laboratories. Due to the current public health emergency, [employer] is receiving a high volume of samples [...] about COVID-19 can be found at the [employer] website: www.Shenandoah Studios.EVRST/Covid19. Microbiology Nasopharyngeal swab / Unknown 05/19/2020 2:48 PM EDT 05/19/2020 2:48 PM EDT [facility] - 05/20/2020 11:00 PM EDT Performing Organization Information: ?Site ID: [id number] ?Name: [employer] ?Address: [address] [place] [address],[facility] [place] [address] ?Director: ALFREDO MACKEY MD [facility]formed at [facility] License number [id number] Bernardo Ramirez PA-C BODY FLUIDS AND S TOOLS ORDERABLES Performing Organization Address City/State/[facility] Co de Phone Number [facility] documented in this encounter Visit Diagnoses Diagnosis Encounter for laboratory testing for COVID-19 virus documented in this encounter
--- OUTSIDE RECORDS SUMMARY | 2024-11-19 10:16 | XMS_ITS | Encounter Summary ---
Author Organization [facility] Address [address] [place] [address] Care Team Providers Care Folding Machine Operator Name Role Phone Unavailable Primary Care Provider Unavailabl e Encounter Details Date Type Department Care Team (Late st Contact Info) Description 06/16/2020 Lab Requisition EM Lab DOC: Jeremias Cochran [address] [place] [phone] Bernardo Ramirez PA-C [address] [place] [phone] Encounter for laboratory testing for COVID-19 virus [...] (COVID-19), Qual (06/16/2020 2:46 PM EST) Pathologist [facility] SARS CoV 2 RNA, Qual NOT DETECTED NOT DETECTED 06/17/2020 10:00 PM EST [facility] Comment: [...] providers and patients using the following websites: https://www.Baifendian.rapt.fm/home/Covid-19/HCP/QuestLDTP/ fact-sheet https://www.eTelemetry/home/Covid-19/Patients/QuestLDTP/ fact-sheet.html This test has been authorized by the FDA under an Emergency Use Authorization (EUA) for use by authorized laboratories. Due to the current public health emergency, [employer] is receiving a high volume of samples [...] about COVID-19 can be found at the [employer] website: www.Threat Stack.rapt.fm/Covid19. Microbiology Nasopharyngeal swab / Unknown 06/16/2020 2:46 PM EST 06/16/2020 2:46 PM EST Narrative [facility] - 06/17/2020 10:00 PM EST Performing Organization Information: ?Site ID: [id number] ?Name: [employer] ?Address: [address] [place] [address],[place] [address] ?Director: ALFREDO MACKEY MD Performed at [facility] License number [id number] Bernardo Ramirez PA-C BODY FLUIDS AND S TOOLS ORDERABLES Performing Organization Address City/State/[facility] Co de Phone Number [facility] documented in this encounter Visit Diagnoses Diagnosis Encounter for laboratory testing for COVID-19 virus documented in this encounter
--- OUTSIDE RECORDS SUMMARY | 2024-11-19 10:16 | XMS_ITS | Clinical Summary ---
Author Organization [facility] Address [address] [place] [address] Care Team Providers Care Plant Biology Professor Name Role Phone Unavailable Primary Care Provider Unavailabl e Encounters Date Type Department Care Team Description 09/04/2024 Transcribe Orders [facility] PRIMARY CARE SCAN Evon Carcamo PA [...]
--- OUTSIDE RECORDS SUMMARY | 2024-11-19 10:16 | XMS_ITS | Encounter Summary ---
Author Organization [facility] Address [address] [place] [address] Care Team Providers Care Home Care Giver Name Role Phone Unavailable Primary Care Provider Unavailabl e Encounter Details Date Type Department Care Team (Late st Contact Info) Description 07/16/2020 Lab Requisition EM LAB DOC CESAR [address] [place] [phone] Bernardo Ramirez PA-C [address] [place] [address] [phone] Encounter for laboratory testing for COVID-19 virus [...] Qual (07/16/2020 1:50 PM EST) Pathologist [facility] SARS CoV 2 RNA, Qual NOT DETECTED NOT DETECTED 07/18/2020 5:00 PM EST [facility] Comment: A [...] providers and patients using the following websites: https://www.3Touch.Sympoz/home/Covid-19/HCP/NAAT/fact-sheet2 https://www.3Touch.Sympoz/home/Covid-19/Patients/NAAT/ fact-sheet2 This test has been authorized by the FDA under an Emergency Use Authorization (EUA) for use by authorized laboratories. Due to the current public health emergency, [employer] is receiving a high volume of samples [...] about COVID-19 can be found at the [employer] website: www.PSafe/Covid19. Microbiology Nasopharyngeal swab / Unknown 07/16/2020 1:50 PM EST 07/16/2020 1:50 PM EST Narrative [facility] - 07/18/2020 5:00 PM EST Performing Organization Information: ?Site ID: [id number] ?Name: [employer] ?Address: [address] [place] [address] [address] [address] ?Director: ALFREDO MACKEY MD Performed at [facility] License number [id number] Bernardo Ramirez PA-C BODY FLUIDS AND S TOOLS ORDERABLES [facility] documented in this encounter Visit Diagnoses Diagnosis Encounter for laboratory testing for COVID-19 virus documented in this encounter
--- OUTSIDE RECORDS SUMMARY | 2024-11-19 10:16 | XMS_ITS | Encounter Summary ---
Author Organization [facility] Address [address] [place] [address] Care Team Providers Care Shipping And Receiving Name Role Phone Unavailable Primary Care Provider Unavailabl e Encounter Details Date Type Department Care Team (Late st Contact Info) Description 03/03/2020 Lab Requisition EM Lab DOC: Jeremias Cochran [address] [place] [phone] Bernardo Ramirez PA-C [address] [place] [address] [phone] Encounter for laboratory testing for COVID-19 virus [...] (COVID-19), Qual (03/03/2020 12:07 PM EDT) Pathologist [facility] SARS CoV 2 RNA, Qual NOT DETECTED NOT DETECTED 03/04/2020 5:00 PM EDT [facility] Comment: A Not Detected (negative) [...] providers and patients using the following websites: https://www.Effortless Energy.Spotivate/home/Covid-19/HCP/NAAT/fact-sheet2 https://www.Effortless Energy.Spotivate/home/Covid-19/Patients/NAAT/ fact-sheet2 This test has been authorized by the FDA under an Emergency Use Authorization (EUA) for use by authorized laboratories. Due to the current public health emergency, [employer] is receiving a high volume of samples [...] about COVID-19 can be found at the [employer] website: www.West World Media/Covid19. Microbiology Nasopharyngeal swab / Unknown 03/03/2020 12:07 PM EDT 03/03/2020 12:07 PM EDT Narrative [facility] - 03/04/2020 5:00 PM EDT Performing Organization Information: ?Site ID: [id number] ?Name: [employer] ?Address: [address] [place] [address] [address]LO[address],[place] [address] ?Director: ALFREDO MACKEY MD Performed at [facility] License number [id number] Bernardo Ramirez PA-C BODY FLUIDS AND S TOOLS ORDERABLES [facility] documented in this encounter Visit Diagnoses Diagnosis Encounter for laboratory testing for COVID-19 virus documented in this encounter
--- OUTSIDE RECORDS SUMMARY | 2024-11-19 10:16 | XMS_ITS | Encounter Summary ---
Author Organization [facility] Address [address] [place] [phone] Care Team Providers Care Glass Toughening Operator Name Role Phone Unavailable Primary Care Provider Unavailabl e Encounter Details Date Type Department Care Team (Late st Contact Info) Description 11/07/2023 Abstract Transplant Living [facility]or Center [address] [place] [address] [place], PCT Social History Tobacco Use [...]
--- OUTSIDE RECORDS SUMMARY | 2024-11-19 10:16 | XMS_ITS | Encounter Summary ---
Author Organization [facility] Address [address] [place] [address] Care Team Providers Care Cotton Agent Name Role Phone Unavailable Primary Care Provider Unavailabl e Encounter Details Date Type Department Care Team (Late st Contact Info) Description 06/26/2020 Lab Requisition EM Lab DOC: Jeremias Cochran [address] [place] [phone] Bernardo Ramirez PA-C [address] [place] [address] [phone] Encounter for laboratory testing for COVID-19 virus [...] (COVID-19), Qual (06/26/2020 8:33 AM EST) Pathologist [facility] SARS CoV 2 RNA, Qual NOT DETECTED NOT DETECTED 06/28/2020 9:00 PM EST [facility] [...] providers and patients using the following websites: https://www.Leversense.Adify/home/Covid-19/HCP/QuestLDTP/ fact-sheet https://www.CloudPartner/home/Covid-19/Patients/QuestLDTP/ fact-sheet.html This test has been authorized by the FDA under an Emergency Use Authorization (EUA) for use by authorized laboratories. Due to the current public health emergency, [employer] is receiving a high volume of samples [...] about COVID-19 can be found at the [employer] website: www.SocialBrowse.Adify/Covid19. Microbiology Nasopharyngeal swab / Unknown 06/26/2020 8:33 AM EST 06/26/2020 8:33 AM EST [facility] - 06/28/2020 9:00 PM EST Performing Organization Information: ?Site ID: [id number] ?Name: [employer] ?Address: [address] [place] [address],[place] [address] ?Director: ALFREDO MACKEY MD [facility]formed at [facility] License number [id number] Bernardo Ramirez PA-C BODY FLUIDS AND S TOOLS ORDERABLES Performing Organization Address City/State/[facility] Co de Phone Number [facility] documented in this encounter Visit Diagnoses Diagnosis Encounter for laboratory testing for COVID-19 virus documented in this encounter
--- OUTSIDE RECORDS SUMMARY | 2024-11-19 10:16 | XMS_ITS | Patient Health Record ---
Author Organization [employer] [facility] Address [address] [place] [address] Care Team Providers Care Hoop Riveter Name Role Phone Faby Enrique Unavailable [phone] Reason For Referral No Information Medications Medication SIG (Take, Route, Frequency, Duration) Notes Start Date End Date Status Multivitamins 1 ORAL daily for -3 [facility]- 02/17/2014 Active Cryselle-28 0.3-30MG-MCG 1 ORAL daily for -3 [facility]- 01/24 Active MetroGel-Vaginal 0.75% 1 Vaginal at bedt sandeep for -3 [facility]- 02/17/2014 Active Problems Problem Type SNOMED Code ICD Code Onset Dates Problem Status W/U Status Risk Notes Problem Vulvovaginitis (disorder) (84437290) Unspecified vaginitis and vulvovaginitis (616.10) Active confirmed Diag Problem Moderate dysplasia of cervix (214028883) Moderate dysplasia of cervix (622.12) Active confirmed Diag Problem Gynecological examination normal (707021360350812) Routine gynecological examination (V72.31) Active confirmed Major Plan Of Treatment No Information Insurance Providers Payer Name Payer Address Payer Phone Subscriber Number Group Number Insured Name Patient Relationship to Insured Coverage Start Date Coverage End Date [employer] [place] [address] [place] [address] [id number] ELISSA CABA Self - patient is the insured
--- OUTSIDE RECORDS SUMMARY | 2024-11-19 10:16 | XMS_ITS | Encounter Summary ---
Author Organization [facility] Address [address] [place] [address] Care Team Providers Care Family Worker Name Role Phone Unavailable Primary Care Provider Unavailabl e Encounter Details Date Type Department Care Team (Late st Contact Info) Description 04/17/2020 Lab Requisition EM Lab DOC: Jeremias Cochran [address] [place] [phone] Bernardo Ramirez PA-C [address] [place] [phone] Encounter for laboratory testing for COVID-19 virus [...] Qual (04/17/2020 8:19 AM EDT) Pathologist [facility] SARS CoV 2 RNA, Qual NOT DETECTED NOT DETECTED 04/19/2020 9:00 AM EDT [facility] Comment: A Not Detected (negative) test [...] providers and patients using the following websites: https://www.Icanbesponsored.Tunesat/home/Covid-19/HCP/QuestLDTP/ fact-sheet https://www.Scrapblog/home/Covid-19/Patients/QuestLDTP/ fact-sheet.html This test has been authorized by the FDA under an Emergency Use Authorization (EUA) for use by authorized laboratories. Due to the current public health emergency, [facility] is receiving a high volume of samples [...] about COVID-19 can be found at the [facility] website: www.[employer].Tunesat/Covid19. Microbiology Nasopharyngeal swab / Unknown 04/17/2020 8:19 AM EDT 04/17/2020 8:19 AM EDT [facility] - 04/19/2020 9:00 AM EDT Performing Organization Information: ?Site ID: [id number] ?Name: [employer] ?Address: [address] [place] [address],[place] [address] ?Director: ALFREDO MACKEY MD [facility]formed at [facility] License number [id number] Bernardo Ramirez PA-C BODY FLUIDS AND S TOOLS ORDERABLES Performing Organization Address City/State/[facility] Co de Phone Number [facility] documented in this encounter Visit Diagnoses Diagnosis Encounter for laboratory testing for COVID-19 virus documented in this encounter
--- OUTSIDE RECORDS SUMMARY | 2024-11-19 10:16 | XMS_ITS | Encounter Summary ---
Author Organization [facility] Address [address] [place] [phone] Care Team Providers Care Parks And Recreation Manager Name Role Phone Unavailable Primary Care Provider Unavailabl e Reason for Visit * Reason Comments Pre-evaluation Living Donor Liver Encounter Details Date Type Department Care Team (Late st Contact Info) Description 12/22/2023 Documentation Transplant [facility] [address] [place] [address] Kalpana Ugalde RN [address] [place] [address] Social History Tobacco Use Types Packs/Day Years [...]
--- OUTSIDE RECORDS SUMMARY | 2024-11-19 10:16 | XMS_ITS | Clinical Summary ---
Author Organization [address] Address [address] [place] [phone] Care Team Providers Care Manager International Name Role Phone Unavailable Primary Care Provider Unavailabl e Encounters Date Type Department Care Team Description 10/11/2024 Telephone Transplant Living Don[facility] [address] [place] [address], 4[address] [place], [place] [phone] Jannet Dias RN Other (Back up) from [...] (Td q 10,TDAP once) 12/11/2023 12/10/2013, 04/26/2004 Covid-19 vaccine series ( season) 2024 10/06/2020, 09/15/2020 Prediabetes Surveillance 11/29/2024 11/30/2023 Influenza vaccine 04/14/2025 07/25/2020, , 09/28/2016, Additional history exists RSV Immunization (1 - 1-dose 75+ series) 2057 Meningococcal [...] - 5.6 % 11/30/2023 2:32 PM EDT [facility] Comment: Hemoglobin A1c [...] mg/dL 117 mg/dL 11/30/2023 2:32 PM EDT [facility] Comment: Estimated average glucose (eAG) is a calculated value designed to estimate ??the expected average blood glucose level throughout the day from a single ??measurement of ??glycated hemoglobin A1C (HbA1c) and follows the calculation proposed by the [place] [employer] (Diabetes Care 31: 1-6, 2008). It may have less accuracy in children, women and patients with certain erythrocyte disorders. Blood Venipuncture / Unknown 11/30/2023 7:19 AM EDT 11/30/2023 7:19 AM EDT Linda Maranda Colmenares APRN LAB BLOOD ORDERABLES Final Result [facility] [address] [place] [address], [facility] [phone] from Last 3 Months or Most Recently Relevant to Health Maintenance Insurance BCBS BCBS BCBS DONOR [employer] [place] [address]
--- OUTSIDE RECORDS SUMMARY | 2024-11-19 10:16 | XMS_ITS | Clinical Summary ---
Author Organization [facility] Address [address] [place] [address] Care Team Providers Care Stitchdown Thread Laster Name Role Phone Bernardo Pisano PA-C Primary Care Provider [phone] Medications No known medications Active Problems No [...] age to complete this topic Care Teams Stitchdown Thread Laster Relationship Specialty Start Date End Date Bernardo Pisano PA-C [address] [place] [address] PCP - General Physician Certified Ophthalmic Technician 04/26/22
--- OUTSIDE RECORDS SUMMARY | 2024-11-19 10:16 | XMS_ITS ---
Author Organization [address] Address [address] [place] [phone] Care Team Providers Care Spray Blender Name Role Phone Unavailable Primary Care Provider Unavailabl e Transplant Episode Liver Potential Donor [facility] ([place] [place]) - [facility] Referred on 11/07/2023 Marked as Deferred on 12/22/2023 Reason: Other Donors Being Evaluated Liver CoordinatorJannet Dias RN Phone: N/A Fax: N/A Email: N/A Care Team Name Role Phone Fax Email Jannet Dias RN Liver Coordinator N/A N/A N/ A WILBER Tomlin Associate Coordinator N/A N/A N/A Events Pre-Donation Referred: 11/07/2023
--- OUTSIDE RECORDS SUMMARY | 2024-11-19 10:16 | XMS_ITS | Encounter Summary ---
Author Organization [facility] Address [address] [place] [phone] Care Team Providers Care Cushion Assembler Name Role Phone Unavailable Primary Care Provider Unavailabl e Reason for Visit * Reason Onset Date Comments Referral 11/21/2023 Liver living don or screening Encounter Details Date Type Department Care Team ([facility] st Contact Info) Description 11/21/2023 Telephone Transplant Living Don[facility] Center [address] [place] [address] Sridevi Cole RN [address] [place], [place] [phone] Referral (Liver living donor screening) Social History [...] BMI: 32.5 Ethnic Background: Medical Insurance: Yes, [facility] ABO: O positive Relationship to recipient: Donor's Co-worker's , she does not know her. Altruistic directed. Employed: [employer] How Lon years Marital Status: Single Children: 2 ( 20,8 y.o) Place of : [place] Citizen - Yes UNOS Listed: Yes Directed donation: Yes Date of : 1980 Social Security Number: (Not on file) Donor [address]: [address] [place] [address] If outside [place], do yo have a VISA? NA Surgical History (Including any anesthesia issues): - Appendectomy in 2021 - Gall Bladder removed in 2021 - section x1 Anesthesia concerns: No MEDICAL HISTORY: FAMILY MEDICAL HISTORY: Hypercoagulability Screening: History of venous thrombosis? (DVT, PE, Budd-Chiari syndrome, mesenteric and portal vein thrombus, retinal vein thrombosis): No History of arterial thrombosis (IN, CVA, TIA): No History of post-operative thromboembolic [...] Provider Name: One time seen a Psychiatrist- [facility] Provider contact:NA Mother Age: 63 Health [...] how much): No PAP: Done 03/2023 - [facility]- Alfred Douglas Illegal or Recreational Drug (if [...]
--- OUTSIDE RECORDS SUMMARY | 2024-11-19 10:16 | XMS_ITS | Clinical Summary ---
Author Organization [facility] ity Address [address] [place] [address] Care Team Providers Care Price Lister Name Role Phone Leandra Mena MD Primary Care Provider [phone] Surgical History Surgery Date Site/Laterality Comments OTHER [...] - 2023-2 5 season) 2024 Influenza Vaccine (Season Ended) 2025 Breast Cancer Screening 03/14/2026 03/14/20 24, 03/07/2023, [...] age to complete this topic Meningococcal B Vaccine Aged Out No l onger eligible based on patient's age to complete [...] Procedure Name Priority Date/Time Associated Diagnosis Comments [facility] SCREENING DIGITAL Routine 03/14/2024 2:27 PM EDT Encounter for screening mammogram for malignant neoplasm of breast from Last 3 Months or Most Recently Relevant to Health Maintenance Results * [facility] SCREENING DIGITAL (03/14/2024 2:27 PM EDT) Anatomical Region Laterality Modality Mammography 03/14/2024 1:26 PM EDT Narrative 03/14/2024 2:27 PM EDT [facility] Diagnostic Imaging Department [address] [place] [address] Patient: ??AGNES PEREZ ?/Age/Sex: 1980 - - Unit#: ??[id number] ? Location/Status: ??SPDIMAM/REG CLI ? Mnemonic/Ordering Site: ??DIGSC/SPMAM Ordering Physician: ??LIZETTE YOUSSEF PA-C [facility] Screening Digital - 03/14/24 - 1345 Report Status:Signed EXAM: Jenn Screening Digital EXAM DATE AND TIME: 03/14/2024 1:46 PM HISTORY: ??Screening. Mother had breast carcinoma at age 58. COMPARISON: ??03/07/23, 02/07/22, 08/09/21, 02/01/21 TECHNIQUE: Bilateral digital breast tomosynthesis was performed in the CC and MLO projections. Computer aided detection with TopTenREVIEWS 3D 3.1 was employed. TISSUE DENSITY: c. [...] Dic Date/Time: ??03/14/24 1427 Sign date/Time: ??03/14/24 142 Procedure Note Clare Vasquez MD - 05/29/2024 [facility] Diagnostic Imaging Department [address] [place] [address] Patient: AGNES PEREZ /Age/Sex: 1980 - 43 - F Unit#: [id number] Location/Status: SPDIMAM/REG CLI Mnemonic/Ordering Site: [facility] Ordering Physician: LIZETTE YOUSSEF PA-C [facility] Screening Digital - 03/14/24 - 1345 Report Status:Signed EXAM: [facility] Screening Digital EXAM DATE AND TIME: 03/14/2024 1:46 PM HISTORY: Screening. Mother had breast carcinoma at age 58. COMPARISON: 03/07/23, 02/07/22, 08/09/21, 02/01/21 TECHNIQUE: Bilateral digital breast tomosynthesis was performed in the CCand MLO projections. Computer aided detection with TopTenREVIEWS 3D 3.1was employed. TISSUE DENSITY: c. The [...] 03/14/241426 Sign date/Time: 03/14/241426 us Lizette [place] G BI PROCEDURES Final Resul t from Last 3 Months or Most Recently Relevant to Health Maintenance Care Teams Price Lister Relationship Specialty Start Date End Date Leandra Mena MD PCP - General Internal Medicine 05/11/22
[2024-11-19 11:26] LABS: Estimated Average Glucose 103 mg/dL; Hemoglobin A1C 112.4667 umol/L; Hemoglobin A1c % 5.2 % (<6.0); Total Hemoglobin (HGBA1C) 3404.3108 umol/L
[2024-11-19 11:31] LABS: Cholesterol 134 mg/dL (<200); HDL Cholesterol 44 mg/dL (>40); LDL Cholesterol Calculated 77 mg/dL (<100); Triglycerides 65 mg/dL (<150)
== END 2024-11-19 09:17 | disposition home or self-care (01) ==
LOC: HO.WFDLDS 09:16
PROVIDERS: Visit Provider Physician Assistant Medical
DX: R73.01 Impaired fasting glucose (principal); Z13.6 Encounter for screening for cardiovascular disorders
CPT/HCPCS: 36415; 80061; 83036

== ENCOUNTER → 2025-01-02 08:08 | Outpatient (REF) | payer BC, SELFPAY ==
--- NOTE | 2025-01-02 08:10 | CA_ITS ---
Acquisition Time: 2025-01-02 08:14:43 Total Exercise Time: 00:09:50 Test Indications: CP, SYNCOPE Medications: SEE H&P Protocol: ROSE Max HR: 155 BPM 87% of Pred: 178 BPM Max BP: 148/72 mmHG Max Work Load: 11.4 METS Exercise stress test with exercise 9 mins 50 secs of Rose Protocol, achieving 87% MPHR, without any anginal symptoms, without any arrythmias, with normotensive response to exercise. Without any EKG changes meeting criteria for ischemia. Nuclear images pending. Test reviewed with Dr. Olivo. Referred By: Evon Carcamo Electronically Signed By: Ramin Harman
--- OUTSIDE RECORDS SUMMARY | 2025-01-02 08:11 | XMS_ITS | Encounter Summary ---
Author Organization [facility] Address [address] [place] [address] Care Team Providers Care Laboratory Immunologist Name Role Phone Evon Carcamo Primary Care Provider [phone] Encounter Details Date Type Department Care Team (Late Contact Info) Description 05/19/2020 Lab Requisition EM Lab DOC: Jeremias Cochran [address] [place] [phone] Bernardo Ramirez PA-C [address] [place] [address] Encounter for laboratory testing for COVID-19 virus Social History Tobacco Use Types Packs/Day Years Used Date Smoking Tobacco: Never Assessed Comments Unknown Sex and Gender Information Value Date Recorded Sex Assigned at Not on file Legal Sex Female 5:00 PM EDT Gender Identity Not on file Sexual Orientation Not on file documented as of this encounter Plan of Treatment Upcoming Encounters Date Type Department Care Team (Late Contact Info) Description 01/21/2025 3:30 PM EDT Office Visit [facility] [address] [phone] Sammy Sharma MD [address] [place] [address] documented as of this encounter Procedures Procedure Name Priority Date/Time Associated Diagnosis Comments (REPORT) SARS COV-2 RNA (COVID-19), QUAL Routine 05/19/2020 2:48 PM EDT Encounter for laboratory testing for COVID-19 virus [ICD-10-CM] documented in this encounter Results * SARS CoV-2 RNA (COVID-19), Qual (05/19/2020 2:48 PM EDT) [facility] SARS CoV 2 RNA, Qual NOT DETECTED NOT DETECTED 05/20/2020 11:00 PM EDT [facility] Comment: [...] providers and patients using the following websites: https://www.[employer]com/home/Covid-19/HCP/QuestLDTP/ fact-sheet https://www.[employer] Solutions/home/Covid-19/Patients/QuestLDTP/ fact-sheet.html This test has been authorized by the FDA under an Emergency Use Authorization (EUA) for use by authorized laboratories. Due to the current public health emergency, [facility] is receiving a high volume of samples [...] about COVID-19 can be found at the [facility] website: www.[employer].Fle[employer] Management Solutions/Covid19. Microbiology Nasopharyngeal swab / Unknown 05/19/2020 2:48 PM EDT 05/19/2020 2:48 PM EDT Narrative [facility] - 05/20/2020 11:00 PM EDT Performing Organization Information: ?Site ID: [id number] ?Name: [facility] ?Address: [address] [place] [address],[place] [address] ?Director: ALFREDO MACKEY MD [facility]formed at [facility] License number [id number] Bernardo Ramirez PA-C BODY FLUIDS AND STOOLS OR DERABLES Final Result Performing Organization Address City/State/[facility] de Phone Number [facility] documented in this encounter Visit Diagnoses Diagnosis Encounter for laboratory testing for COVID-19 virus documented in this encounter Care Teams Laboratory Immunologist Relationship Specialty Start Date End Date Evon Carcamo PA [address] [place] [phone] PCP - General General Medicine 11/25/24 documented as of this encounter
--- OUTSIDE RECORDS SUMMARY | 2025-01-02 08:11 | XMS_ITS | Encounter Summary ---
Author Organization [facility] Address [address] [place] [address] Care Team Providers Care Welfare Aide Name Role Phone Evon Carcamo Primary Care Provider [phone] Encounter Details Date Type Department Care Team (Late st Contact Info) Description 04/17/2020 Lab Requisition EM Lab DOC: Jeremias Cochran [address] [place] [phone] Bernardo Ramirez PA-C [address] [place] [address] Encounter for laboratory testing for COVID-19 virus [...] Description 01/21/2025 3:30 PM EDT Office Visit [facility] [address] [phone] Sammy Sharma MD [address] [place] [address] documented as of this encounter Procedures [...] DETECTED NOT DETECTED 04/19/2020 9:00 AM EDT [facility] Comment: A Not Detected (negative) test result [...] providers and patients using the following websites: https://www.Caravan.com/home/Covid-19/HCP/QuestLDTP/ fact-sheet https://www.[employer].Miscota/home/Covid-19/Patients/QuestLDTP/ fact-sheet.html This test has been authorized by the FDA under an Emergency Use Authorization (EUA) for use by authorized laboratories. Due to the current public health emergency, [employer] is receiving a high volume of samples [...] about COVID-19 can be found at the [employer] website: www.[employer].Miscota/Covid19. Microbiology Nasopharyngeal swab / Unknown 04/17/2020 8:19 AM EDT 04/17/2020 8:19 AM EDT [facility] - 04/19/2020 9:00 AM EDT Performing Organization Information: ?Site ID: [id number] ?Name: [facility] ?Address: [address] [place] [address],[place] [address] ?Director: ALFREDO MACKEY MD [facility] number [id number] Bernardo Ramirez PA-C BODY FLUIDS AND STOOLS OR DERABLES Final Result Performing Organization Address City/State/[facility] [[email or web address]] Co de Phone Number [facility] documented in this encounter Visit Diagnoses Diagnosis Encounter for laboratory testing for COVID-19 virus documented in this encounter Care Teams Welfare Aide Relationship Specialty Start Date End Date Evon Carcamo PA [address] [place] [address] PCP - General General Medicine 11/25/24 documented as of this encounter
--- OUTSIDE RECORDS SUMMARY | 2025-01-02 08:11 | XMS_ITS | Encounter Summary ---
Author Organization [facility] Address [address] [place] [address] Care Team Providers Care Spouting Installer Name Role Phone Leandra Mena MD Primary Care Provider [phone] Encounter Details Date Type Department Care Team (Late st Contact Info) Description 11/21/2024 Lab Requisition [facility] - Main Lab [address] [facility] [phone] Monica Rea MD [address] [facility] [address] [place] [phone] Acute vaginitis; Urinary tract infection, site not specified Social History Tobacco Use Types Packs/Day Years [...] Procedure Name Priority Date/Time Associated Diagnosis Comments URINALYSIS WITH REFLEX MICROSCOPIC Routine 11/21/2024 12:00 AM EDT Acute vaginitis Urinary tract infection, site not specified URINALYSIS WITH REFLEX MICROSCOPIC Routine 11/21/2024 12:00 AM EDT Acute vaginitis Urinary tract infection, site not specified VAGINITIS PATHOGENS BY PCR Routine 11/21/2024 12:00 AM EDT Acute vaginitis Urinary tract infection, site not specified CULTURE URINE Routine 11/21/2024 12:00 AM EDT Acute vaginitis Urinary tract infection, site not specified documented in this encounter Results * (ABNORMAL) Urinalysis with reflex microscopic (11/21/2024 12:00 AM EDT) Specific [place] Urine 1.012 1.003 - 1.030 LAB URINALYSIS - AUTOMATED METHOD 11/21/2024 1:35 PM [facility] pH, Urine 7.5 5.0 - 8.0 pH LAB URINALYSIS - AUTOMATED METHOD 11/21/2024 1:35 PM [facility] Leukocytes, Urine Moderate(A) Negative LAB URINALYSIS - AUTOMATED METHOD 11/21/2024 1:35 PM [facility] Nitrite, Urine Positive(A) Negative LAB URINALYSIS - AUTOMATED METHOD 11/21/2024 1:35 PM [facility] Protein, Urine Negative <=Trace mg/dL LAB URINALYSIS - AUTOMATED METHOD 11/21/2024 1:35 PM [facility] Glucose, Urine Negative Negative mg/dL LAB URINALYSIS - AUTOMATED METHOD 11/21/2024 1:35 PM [facility] Ketones, Urine Trace(A) Negative mg/dL LAB URINALYSIS - AUTOMATED METHOD 11/21/2024 1:35 PM [facility] Urobilinogen , Urine 1.0 0.2 - 1.0 mg/dL LAB URINALYSIS - AUTOMATED METHOD 11/21/2024 1:35 PM [facility] Bilirubin, Urine Negative Negative LAB URINALYSIS - AUTOMATED METHOD 11/21/2024 1:35 PM [facility] Blood, Urine Trace(A) Negative LAB URINALYSIS - AUTOMATED METHOD 11/21/2024 1:35 PM [facility] RBC, Urine 12.3(H) 0 - 4 /HPF LAB URINALYSIS - AUTOMATED METHOD 11/21/2024 1:35 PM EDT [facility] WBC, Urine 46.5(H) 0 - 4 /HPF LAB URINALYSIS - AUTOMATED METHOD 11/21/2024 1:35 PM EDT [facility] Squamous Epithelial, Urine 8 0 - 60 /LPF LAB URINALYSIS - AUTOMATED METHOD 11/21/2024 1:35 PM EDT [facility] Bacteria, Urine Many(A) Negative /HPF LAB URINALYSIS - AUTOMATED METHOD 11/21/2024 1:35 PM EDT [facility] Hyaline Casts, Urine 0.0 0 - 3 /LPF LAB URINALYSIS - AUTOMATED METHOD 11/21/2024 1:35 PM EDT [facility] Urine Urine specimen obtained by clean catch procedure / Unknown 11/21/2024 11/21/2024 1:26 PM EDT us Monica Rea MD LAB URINE ORDERABLES Fin al Result [facility] [address] [place] [address], * (ABNORMAL) Culture urine (11/21/2024 12:00 AM EDT) Culture, Urine >100,000 CFU/mL Escherichia coli(A) ANITA 11/23/2024 10:22 AM EDT [facility] Urine Urine specimen obtained by clean catch procedure / Unknown 11/21/2024 11/21/2024 1:26 PM EDT Narrative Organism Antibiotic Method Susceptibility Escherichia coli Amoxicillin/Clavulanate ANITA <=2 ug/ml: Susceptible Escherichia coli Ampicillin/Sulbactam ANITA <=2 ug/ml: Susceptible Escherichia coli Piperacillin/Tazobactam ANITA <=4 ug/ml: Susceptible Escherichia coli Cefazolin (Urine) ANITA <=1 ug/ml: Susceptible Escherichia coli Cefoxitin ANITA <=4 ug/ml: Susceptible Escherichia coli Ceftazidime ANITA <=0.5 ug/ml: Susceptible Escherichia coli Ceftriaxone ANITA <=0.25 ug/ml: Susceptible Escherichia coli Cefepime ANITA <=0.12 ug/ml: Susceptible Escherichia coli Meropenem ANITA <=0.25 ug/ml: Susceptible Escherichia coli Amikacin ANITA 2 ug/ml: Susceptible Escherichia coli Gentamicin ANITA <=1 ug/ml: Susceptible Escherichia coli Ciprofloxacin ANITA <=0.06 ug/ml: Susceptible Escherichia coli Levofloxacin ANITA <=0.12 ug/ml: Susceptible Escherichia coli Nitrofurantoin ANITA <=16 ug/ml: Susceptible Escherichia coli Trimethoprim/Sulfamethoxazole ANITA <=20 ug/ml: Susceptible Monica Rea MD LAB MICROBIOLOGY - GENER AL ORDERABLES Final Result Performing Organization Address [facility] Co de Phone Number [facility] [address] [place] [address], [place] [phone] * (ABNORMAL) Vaginitis pathogens molecular study (11/21/2024 12:00 AM EDT) Trichomonas vaginalis Negative Negative 11/22/2024 10:46 AM EDT [facility] Gardnerella vaginalis Positive(A) Negative 11/22/2024 10:46 AM EDT [facility] Nicol Species Negative Negative 10:46 AM EDT [facility] Swab Vaginal structure / Unknown 11/21/2024 11/21/2024 1:26 PM EDT Monica eRa MD LAB MICROBIOLOGY - GENER AL ORDERABLES Final Result Performing Organization Address [facility]/ZIP Co de Phone Number [facility] [address] [place] [address], [place] [phone] documented in this encounter Visit Diagnoses Diagnosis Acute vaginitis Unspecified vaginitis and vulvovaginitis Urinary tract infection, site not specified documented in this encounter Care Teams Spouting Installer Relationship Specialty Start Date End Date Leandra Mena MD [address] [place] [phone] PCP - General Internal Medicine 05/11/22 documented as of this encounter
--- OUTSIDE RECORDS SUMMARY | 2025-01-02 08:11 | XMS_ITS | Encounter Summary ---
Author Organization [facility] Address [address] [place] [phone] Care Team Providers Care Dietary Aide Teacher Name Role Phone Unavailable Primary Care Provider Unavailabl e Reason for Visit * Reason Comments Pre-evaluation [facility] Encounter Details Date Type Department Care Team (Late st Contact Info) Description 12/22/2023 Documentation [facility] [address] [place] [address] Kalpana Ugalde RN [address] [place] [address] Social History Tobacco Use Types Packs/Day Years [...]
--- OUTSIDE RECORDS SUMMARY | 2025-01-02 08:11 | XMS_ITS | Encounter Summary ---
Author Organization [facility] Address [address] [place] [address] Care Team Providers Care Project Designer Name Role Phone Evon Carcamo Primary Care Provider [phone] Encounter Details Date Type Department Care Team (Late st Contact Info) Description 06/26/2020 Lab Requisition EM Lab DOC: Jeremias Cochran [address] [place] [phone] Bernardo Ramirez PA-C [address] [place] [address] Encounter for laboratory testing for COVID-19 virus [...] Description 01/21/2025 3:30 PM EDT Office Visit [facility] [address] [phone] Sammy Sharma MD [address] [place] [address] documented as of this encounter Procedures Procedure Name Priority Date/Time Associated Diagnosis Comments (REPORT) SARS COV-2 RNA (COVID-19), QUAL Routine 06/26/2020 8:33 AM EST Encounter for laboratory testing for COVID-19 virus [ICD-10-CM] documented in this encounter Results * SARS CoV-2 RNA (COVID-19), Qual (06/26/2020 8:33 AM EST) Pathologist [facility] SARS CoV 2 RNA, Qual NOT DETECTED NOT DETECTED 06/28/2020 9:00 PM EST [facility] Comment: A Not [...] providers and patients using the following websites: https://www.Devver.com/home/Covid-19/HCP/QuestLDTP/ fact-sheet https://www.Devver.Q2ebanking/home/Covid-19/Patients/QuestLDTP/ fact-sheet.html This test has been authorized by the FDA under an Emergency Use Authorization (EUA) for use by authorized laboratories. Due to the current public health emergency, [facility] is receiving a high volume of samples [...] about COVID-19 can be found at the [employer] website: www.Prospectvision.Q2ebanking/Covid19. Microbiology Nasopharyngeal swab / Unknown 06/26/2020 8:33 AM EST 06/26/2020 8:33 AM EST Narrative [facility] - 06/28/2020 9:00 PM EST Performing Organization Information: ?Site ID: [id number] ?Name: [employer] ?Address: [address] [place] [address],[place] [address] ?Director: ALFREDO MACKEY MD [facility]formed at [email or web address] License number [id number] Bernardo Ramirez PA-C BODY FLUIDS AND STOOLS OR DERABLES Final Result Performing Organization Address City/State/[facility] Co de Phone Number [facility] documented in this encounter Visit Diagnoses Diagnosis Encounter for laboratory testing for COVID-19 virus documented in this encounter Care Teams Project Designer Relationship Specialty Start Date End Date Evon Carcamo PA [address] [place] [address] PCP - General General Medicine 11/25/24 documented as of this encounter
--- OUTSIDE RECORDS SUMMARY | 2025-01-02 08:11 | XMS_ITS | Clinical Summary ---
Author Organization [address] Address [address] [place] [address] Phone Care Team Providers Care Clinical Reimbursement Specialist Name Role Phone Leandra Mena MD Primary Care Provider [phone] Encounters Date Type Department Care Team Description 11/21/2024 Lab Requisition [facility] - Main Lab [address] [place] [address] Monica Rea MD Acute vaginitis; Urinary tract infection, site not specified from Last 3 Months Surgical History Surgery Date Site/Laterality Comments OTHER SURGICAL HISTORY 04/27/2022 PROCEDURE: [place] LAPAROSCOPIC APPENDECTOMY; [facility] Social History Tobacco Use Types Packs/Day Years [...] Influencers of Health Screening 07/16/2022 COVID-19 Vaccine (2023-2 5 season) 2024 Influenza Vaccine (Season Ended) [...] vaginitis Urinary tract infection, site not specified KASSIE SCREENING DIGITAL Routine 03/14/2024 2:27 PM EDT Encounter for screening mammogram for malignant neoplasm of breast from Last 3 Months or Most Recently Relevant to Health Maintenance Results * (ABNORMAL) Urinalysis with reflex microscopic (11/21/2024 12:00 AM EDT) Specific [place] Urine 1.012 1.003 - 1.030 LAB URINALYSIS - AUTOMATED METHOD 11/21/2024 1:35 PM [facility] pH, Urine 7.5 5.0 - 8.0 pH LAB URINALYSIS - AUTOMATED METHOD 11/21/2024 1:35 PM [facility] Leukocytes, Urine Moderate(A) Negative LAB URINALYSIS - AUTOMATED METHOD 11/21/2024 1:35 PM [facility] Nitrite, Urine Positive(A) Negative LAB URINALYSIS - AUTOMATED METHOD 11/21/2024 1:35 PM [facility] Protein, Urine Negative <=Trace mg/dL LAB URINALYSIS - AUTOMATED METHOD 11/21/2024 1:35 PM [facility] Glucose, Urine Negative Negative mg/dL LAB URINALYSIS - AUTOMATED METHOD 11/21/2024 1:35 PM [facility] Ketones, Urine Trace(A) Negative mg/dL LAB URINALYSIS - AUTOMATED METHOD 11/21/2024 1:35 PM [facility] Urobilinogen , Urine 1.0 0.2 - 1.0 mg/dL LAB URINALYSIS - AUTOMATED METHOD 11/21/2024 1:35 PM [facility] Bilirubin, Urine Negative Negative LAB URINALYSIS - AUTOMATED METHOD 11/21/2024 1:35 PM [facility] Blood, Urine Trace(A) Negative LAB URINALYSIS - AUTOMATED METHOD 11/21/2024 1:35 PM [facility] RBC, Urine 12.3(H) 0 - 4 /HPF LAB URINALYSIS - AUTOMATED METHOD 11/21/2024 1:35 PM EDT [facility] WBC, Urine 46.5(H) 0 - 4 /HPF LAB URINALYSIS - AUTOMATED METHOD 11/21/2024 1:35 PM EDT [facility] Squamous Epithelial, Urine 8 0 - 60 /LPF LAB URINALYSIS - AUTOMATED METHOD 11/21/2024 1:35 PM EDT [facility] Bacteria, Urine Many(A) Negative /HPF LAB URINALYSIS - AUTOMATED METHOD 11/21/2024 1:35 PM EDT [facility] Hyaline Casts, Urine 0.0 0 - 3 /LPF LAB URINALYSIS - AUTOMATED METHOD 11/21/2024 1:35 PM EDT [facility] Urine Urine specimen obtained by clean catch procedure / Unknown 11/21/2024 11/21/2024 1:26 PM EDT us Monica Rea MD LAB URINE ORDERABLES Fin al Result Performing Organization Address [facility]/ZIP Co de Phone Number [facility] [address] [place] [address], * (ABNORMAL) Vaginitis pathogens molecular study (11/21/2024 12:00 AM EDT) Trichomonas vaginalis Negative Negative 11/22/2024 10:46 AM EDT [facility] Gardnerella vaginalis Positive(A) Negative 11/22/2024 10:46 AM EDT [facility] Nicol Species Negative Negative 10:46 AM EDT [facility] Swab Vaginal structure / Unknown 11/21/2024 11/21/2024 1:26 PM EDT us Monica Rea MD LAB MICROBIOLOGY - GENER AL ORDERABLES Final Result Performing Organization Address City/[facility]/ZIP Co de Phone Number [facility] [address] [place] [address], [place] [phone] * (ABNORMAL) Culture urine (11/21/2024 12:00 AM EDT) Culture, Urine >100,000 CFU/mL Escherichia coli(A) ANITA 11/23/2024 10:22 AM EDT [facility] Urine Urine specimen obtained by clean catch procedure / Unknown 11/21/2024 11/21/2024 1:26 PM EDT Narrative Organism Antibiotic Method Susceptibility Escherichia coli Amoxicillin/Clavulanate ANITA <=2 ug/ml: Susceptible Escherichia coli Ampicillin/Sulbactam ANITA <=2 ug/ml: Susceptible Escherichia coli Piperacillin/Tazobactam ANITA <=4 ug/ml: Susceptible Escherichia coli Cefazolin (Urine) ANITA <=1 ug/ml: Susceptible Escherichia coli Cefoxitin ANITA <=4 ug/ml: Susceptible Escherichia coli Ceftazidime ANIAT <=0.5 ug/ml: Susceptible Escherichia coli Ceftriaxone ANITA [...] Escherichia coli Trimethoprim/Sulfamethoxazole ANITA <=20 ug/ml: Susceptible us Monica Rea MD LAB MICROBIOLOGY - GENER AL ORDERABLES Final Result [facility] [address] [place] [address], [place] [phone] * KASSIE SCREENING DIGITAL (03/14/2024 2:27 PM EDT) Anatomical Region Laterality Modality Mammography 03/14/2024 1:26 PM EDT Narrative 03/14/2024 2:27 PM EDT [facility] Diagnostic Imaging Department [address] [place] [address] Patient: ??AGNES PEREZ ?/Age/Sex: 1980 - 43 - F Unit#: ??[id number] ? Location/Status: ??SPDIMAM/REG CLI ? Mnemonic/Ordering Site: ??DIGSC/SPMAM Ordering Physician: ??EVON YOUSSEF PA-C [facility] Screening Digital - 03/14/24 - 1345 Report Status:Signed EXAM: [facility] Screening Digital EXAM DATE AND TIME: 03/14/2024 1:46 PM HISTORY: ??Screening. Mother had breast carcinoma at age 58. COMPARISON: ??03/07/23, 02/07/22, 08/09/21, 02/01/21 TECHNIQUE: Bilateral digital breast tomosynthesis was performed in the CC and MLO projections. Computer aided detection with [employer] 3D 3.1 was employed. TISSUE DENSITY: c. [...] Signed by: ??CLARE VASQUEZ MD Dic Date/Time: ??03/14/241426 Sign date/Time: ??03/14/241426 Procedure Note Clrae Vasquez MD - 05/29/2024 [facility] Diagnostic Imaging Department [address] [place] [address] Patient: AGNES PEREZ D.O.B./Age/Sex: 1980 - 43 - F Unit#: [id number] Location/Status: [facility]/REG CLI Mnemonic/Ordering Site: [facility] Ordering Physician: EVON YOUSSEF PA-C [facility] Screening Digital - 03/14/24 - 1345 Report Status:Signed EXAM: [facility] Screening Digital EXAM DATE AND TIME: 03/14/2024 1:46 PM HISTORY: Screening. Mother had breast carcinoma at age 58. COMPARISON: 03/07/23, 02/07/22, 08/09/21, 02/01/21 TECHNIQUE: Bilateral digital breast tomosynthesis was performed in the CCand MLO projections. Computer aided detection with [employer] 3D 3.1was employed. TISSUE DENSITY: c. The [...] Signed by: CLARE VASQUEZ MD Dic Date/Time: 03/14/24 1427 Sign date/Time: 03/14/24 142 us Evon [place] IM BI PROCEDURES Final Resul t from Last 3 Months or Most Recently Relevant to Health Maintenance Insurance [facility] Care Teams Clinical Reimbursement Specialist Relationship Specialty Start Date End Date Leandra Mena MD [address] [place] [phone] PCP - General Internal Medicine 05/11/22
--- OUTSIDE RECORDS SUMMARY | 2025-01-02 08:11 | XMS_ITS | Encounter Summary ---
Author Organization [facility] Address [address] [place] [address] Care Team Providers Care Veneer Press Operator Name Role Phone Evon Carcamo Primary Care Provider [phone] Encounter Details Date Type Department Care Team (Late Contact Info) Description 03/03/2020 Lab Requisition EM Lab DOC: Jeremias Cochran [address] [place] [phone] Bernardo Ramirez PA-C [address] [place] [address] Encounter for laboratory testing for COVID-19 virus [...] Description 01/21/2025 3:30 PM EDT Office Visit [facility] [address] [phone] Sammy Sharma MD [address] [place] [address] documented as of this encounter Procedures Procedure Name Priority Date/Time Associated Diagnosis Comments (REPORT) SARS COV-2 RNA (COVID-19), QUAL Routine 03/03/2020 12:07 PM EDT Encounter for laboratory testing for COVID-19 virus [ICD-10-CM] documented in this encounter Results * SARS CoV-2 RNA (COVID-19), Qual (03/03/2020 12:07 PM EDT) [facility] SARS CoV 2 RNA, Qual NOT DETECTED NOT DETECTED 03/04/2020 5:00 PM EDT [facility] Comment: A Not Detected (negative) test [...] providers and patients using the following websites: https://www.ACS Biomarker.Datamolino/home/Covid-19/HCP/NAAT/fact-sheet2 https://www.[employer].Datamolino/home/Covid-19/Patients/NAAT/ fact-sheet2 This test has been authorized by the FDA under an Emergency Use Authorization (EUA) for use by authorized laboratories. Due to the current public health emergency, [employer] is receiving a high volume of samples [...] about COVID-19 can be found at the [employer] website: www.[employer].Datamolino/Covid19. Microbiology Nasopharyngeal swab / Unknown 03/03/2020 12:07 PM EDT 03/03/2020 12:07 PM EDT Narrative SABA MAGANA - 03/04/2020 5:00 PM EDT Performing Organization Information: ?Site ID: [id number] ?Name: [employer] ?Address: [address] [place] [address],[place] [address] ?Director: ALFREDO MACKEY MD [facility]formed at [facility] License number [id number] Bernardo Ramirez PA-C BODY FLUIDS AND STOOLS OR DERABLES Final Result [facility] Odonnell [facility] documented in this encounter Visit Diagnoses Diagnosis Encounter for laboratory testing for COVID-19 virus documented in this encounter Care Teams Veneer Press Operator Relationship Specialty Start Date End Date Evon Carcamo PA [address] [place] [address] PCP - General General Medicine 11/25/24 documented as of this encounter
--- OUTSIDE RECORDS SUMMARY | 2025-01-02 08:11 | XMS_ITS | Clinical Summary ---
Author Organization [facility] Address [address] [place] [address] Care Team Providers Care Sleeve Turner Name Role Phone Bernardo Pisano PA-C Primary Care Provider [phone] Medications No known medications Active Problems No [...] age to complete this topic Care Teams Sleeve Turner Relationship Specialty Start Date End Date Bernardo Pisano PA-C [address] [place] [phone] PCP - General Physician Lead Burner Helper 04/26/22
--- OUTSIDE RECORDS SUMMARY | 2025-01-02 08:11 | XMS_ITS | Encounter Summary ---
Author Organization [facility] Address [address] [place] [address] Care Team Providers Care Senior Clinical Research Scientist Name Role Phone Evon Carcamo Primary Care Provider Encounter Details Date Type Department Care Team (Late st Contact Info) Description 08/11/2020 Lab Requisition EM Lab DOC: Jeremias Cochran [address] [place] [phone] Bernardo Ramirez PA-C [address] [place] [phone] Encounter for laboratory testing for COVID-19 virus [...] Description 01/21/2025 3:30 PM EDT Office Visit [facility] [address] [phone] Sammy Sharma MD [address] [place] [phone] documented as of this encounter Procedures Procedure Name Priority Date/Time Associated Diagnosis Comments (REPORT) SARS COV-2 RNA (COVID-19), QUAL Routine 08/11/2020 8:07 AM EST Encounter for laboratory testing for COVID-19 virus [ICD-10-CM] documented in this encounter Results * SARS CoV-2 RNA (COVID-19), Qual (08/11/2020 8:07 AM EST) Pathologist [facility] [...] providers and patients using the following websites: https://www.Fed Playbook.An[employer]or [employer]aceutical/home/Covid-19/HCP/NAAT/fact-sheet2 https://www.Fed Playbook.[employer]/home/Covid-19/Patients/NAAT/ fact-sheet2 This test has been authorized by the FDA under an Emergency Use Authorization (EUA) for use by authorized laboratories. Due to the current public health emergency, [employer] is receiving a high volume of samples [...] about COVID-19 can be found at the [employer] website: www.[employer]pture.Anacor Pharmaceutical/Covid19. Microbiology Nasopharyngeal swab / Unknown 08/11/2020 8:07 AM EST 08/11/2020 8:07 AM EST Narrative SABA MAGANA - 08/12/2020 10:00 PM EST Performing Organization Information: ?Site ID: [id number] ?Name: [employer] ?Address: [address] [place] [address],[place] [address] ?Director: ALFREDO MACKEY MD [facility]formed at [facility] License number [id number] Bernardo Ramirez PA-C BODY FLUIDS AND STOOLS OR DERABLES Final Result SABA Odonnell [facility] documented in this encounter Visit Diagnoses Diagnosis Encounter for laboratory testing for COVID-19 virus documented in this encounter Care Teams Senior Clinical Research Scientist Relationship Specialty Start Date End Date Evon Carcamo PA [address] [place] [address] PCP - General General Medicine 11/25/24 documented as of this encounter
--- OUTSIDE RECORDS SUMMARY | 2025-01-02 08:11 | XMS_ITS | Encounter Summary ---
Author Organization [facility], Located [facility] Address [address] [place] [address] Care Team Providers Care Hat Cone Inspector Name Role Phone Evon Carcamo Primary Care Provider [phone] Encounter Details Date Type Department Care Team (Late st Contact Info) Description 06/16/2020 Lab Requisition EM Lab DOC: Jeremias Cochran [address] [place] [phone] Bernardo Ramirez PA-C [address] [place] [address] Encounter for laboratory testing for COVID-19 virus [...] Description 01/21/2025 3:30 PM EDT Office Visit [facility] [address] [phone] Sammy Sharma MD [address] [place] [address] documented as of this encounter Procedures Procedure Name Priority Date/Time Associated Diagnosis Comments (REPORT) SARS COV-2 RNA (COVID-19), QUAL Routine 06/16/2020 2:46 PM EST Encounter for laboratory testing for COVID-19 virus [ICD-10-CM] documented in this encounter Results * SARS CoV-2 RNA (COVID-19), Qual (06/16/2020 2:46 PM EST) Pathologist [facility] SARS CoV 2 RNA, Qual NOT DETECTED NOT DETECTED 06/17/2020 10:00 PM EST [facility] Comment: [...] providers and patients using the following websites: https://www.[employer]com/home/Covid-19/HCP/QuestLDTP/ fact-sheet https://www.[employer]Blue Nile/home/Covid-19/Patients/QuestLDTP/ fact-sheet.html This test has been authorized by the FDA under an Emergency Use Authorization (EUA) for use by authorized laboratories. Due to the current public health emergency, [facility] is receiving a high volume of samples [...] about COVID-19 can be found at the [facility] website: www.[employer].Blue Nile/Covid19. Microbiology Nasopharyngeal swab / Unknown 06/16/2020 2:46 PM EST 06/16/2020 2:46 PM EST Narrative [facility] - 06/17/2020 10:00 PM EST Performing Organization Information: ?Site ID: [id number] ?Name: [employer] ?Address: [address] [place] [address],[place] [address] ?Director: ALFREDO MACKEY MD [facility] at [facility] License number [id number] Bernardo Ramirez PA-C BODY FLUIDS AND STOOLS OR DERABLES Final Result Performing Organization Address City/State/[facility] Co de Phone Number [facility] documented in this encounter Visit Diagnoses Diagnosis Encounter for laboratory testing for COVID-19 virus documented in this encounter Care Teams Hat Cone Inspector Relationship Specialty Start Date End Date Evon Carcamo PA [address] [place] [address] PCP - General General Medicine 11/25/24 documented as of this encounter
--- OUTSIDE RECORDS SUMMARY | 2025-01-02 08:11 | XMS_ITS | Encounter Summary ---
Author Organization [facility] Address [address] [place] [address] Care Team Providers Care Foam Rubber Fabricator Name Role Phone Evon Carcamo Primary Care Provider [phone] Encounter Details Date Type Department Care Team (Late st Contact Info) Description 07/16/2020 Lab Requisition EM LAB DOC [facility] [address] [place] [address] Bernardo Ramirez PA-C [address] [place] [address] Encounter for laboratory testing for COVID-19 virus [...] Encounters Date Type Department Care Team (Late st Contact Info) Description 01/21/2025 3:30 PM EDT Office Visit [facility] [address], [place] [address] Sammy Sharma MD [address] [place] [address] documented as of this encounter Procedures Procedure Name Priority Date/Time Associated Diagnosis Comments (REPORT) SARS COV-2 RNA (COVID-19), QUAL Routine 07/16/2020 1:50 PM EST Encounter for laboratory testing for COVID-19 virus [ICD-10-CM] documented in this encounter Results * SARS CoV-2 RNA (COVID-19), Qual (07/16/2020 1:50 PM EST) SARS CoV 2 RNA, Qual NOT DETECTED NOT DETECTED 07/18/2020 5:00 PM EST [facility] Comment: A Not Detected (negative) test result [...] providers and patients using the following websites: https://www.[employer]ViaWest/home/Covid-19/HCP/NAAT/fact-sheet2 https://www.[employer]West/home/Covid-19/Patients/NAAT/ fact-sheet2 This test has been authorized by the FDA under an Emergency Use Authorization (EUA) for use by authorized laboratories. Due to the current public health emergency, [facility] is receiving a high volume of samples [...] about COVID-19 can be found at the [facility] website: www.[employer]iaWest/Covid19. Microbiology Nasopharyngeal swab / Unknown 07/16/2020 1:50 PM EST 07/16/2020 1:50 PM EST Narrative [facility] - 07/18/2020 5:00 PM EST Performing Organization Information: ?Site ID: [id number] ?Name: [employer] ?Address: [address] [place] [address],[place] [address] ?Director: ALFREDO MACKEY MD [facility]formed at [facility] License number [id number] Bernardo Ramirez PA-C BODY FLUIDS AND STOOLS OR DERABLES Final Result [facility] documented in this encounter Visit Diagnoses Diagnosis Encounter for laboratory testing for COVID-19 virus documented in this encounter Care Teams Foam Rubber Fabricator Relationship Specialty Start Date End Date Evon Carcamo PA [address] [place] [address] PCP - General General Medicine 11/25/24 documented as of this encounter
--- OUTSIDE RECORDS SUMMARY | 2025-01-02 08:12 | XMS_ITS | Patient Health Record ---
Author Organization [employer] [facility] Address [address] [place] [address] Care Team Providers Care Wood Repatcher Name Role Phone Faby Enrique Unavailable [phone] Reason For Referral No Information Medications Medication SIG (Take, Route, Frequency, Duration) Notes Start Date End Date Status Multivitamins 1 ORAL daily for -3 [facility]-MJ 02/17/2014 Active Cryselle-28 0.3-30MG-MCG 1 ORAL daily for -3 [facility]- 01/24 Active MetroGel-Vaginal 0.75% 1 Vaginal at bedt sandeep for -3 [facility]-MJ 02/17/2014 Active Problems Problem Type SNOMED Code ICD Code Onset Dates Problem Status W/U Status Risk Notes Problem Vulvovaginitis (disorder) (77434721) Unspecified vaginitis and vulvovaginitis (616.10) Active confirmed Diag Problem Moderate dysplasia of cervix (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
--- OUTSIDE RECORDS SUMMARY | 2025-01-02 08:12 | XMS_ITS | Encounter Summary ---
Author Organization [facility] Address [address] [place] [phone] Care Team Providers Care Ancillary Services Manager Name Role Phone Unavailable Primary Care Provider Unavailabl e Encounter Details Date Type Department Care Team ([facility] st Contact Info) Description 11/07/2023 Abstract [facility] [address]th [place] [address] Garrett Hall, PCT Social History Tobacco Use [...]
--- OUTSIDE RECORDS SUMMARY | 2025-01-02 08:12 | XMS_ITS | Clinical Summary ---
Author Organization [address] Address [address] [place] [phone] Care Team Providers Care Modeler Name Role Phone Unavailable Primary Care Provider Unavailabl e Encounters Date Type Department Care Team Description 10/11/2024 Telephone [facility] [address] [place] [address], 4th [address] [place], [place] [phone] Jannet Dias RN Other (Back up) from [...] - 5.6 % 11/30/2023 2:32 PM EDT [facility] DEPARTMENT OF LABORATORY MEDICINE Comment: Hemoglobin [...] mg/dL 117 mg/dL 11/30/2023 2:32 PM EDT [facility] DEPARTMENT OF LABORATORY MEDICINE Comment: Estimated average glucose (eAG) is a calculated value designed to estimate ??the expected average blood glucose level throughout the day from a single ??measurement of ??glycated hemoglobin A1C (HbA1c) and follows the calculation proposed by the [place] Diabetes Association (Diabetes Care 31: 1-6, 2008). It may have less accuracy in children, women and patients with certain erythrocyte disorders. Blood Venipuncture / Unknown 11/30/2023 7:19 AM EDT 11/30/2023 7:19 AM EDT Linda Maranda Colmenares APRN LAB BLOOD ORDERABLES Final Result [facility] DEPARTMENT OF LABORATORY MEDICINE [address] [place] [address], [facility] [phone] from Last 3 Months or Most Recently Relevant to Health Maintenance Insurance BCBS BCBS BCBS [employer] [place] [place] [address]
--- OUTSIDE RECORDS SUMMARY | 2025-01-02 08:12 | XMS_ITS | Clinical Summary ---
Author Organization [facility] Address [address] [place] [address] Care Team Providers Care Equipment Operator/Laborer Name Role Phone Evon Carcamo Primary Care Provider [phone] Allergies Active Allergy Reactions Criticality Noted Date Comments Penicillin G Unknown/Patient and Family Unable to Define Medium 11/25/2024 Medications propranolol (INDERAL) 10 MG tablet TAKE 1 TABLET BY MOUTH TWICE A DAY NEEDED FOR TREMORS 5 Active buPROPion (WELLBUTRIN XL) 300 MG 24 hr tablet Take 300 mg by mouth every morning. 5 Active mupirocin (BACTROBAN) 2 % ointmentIndicatio ns:Nasal vestibulitis Apply topically 2 times a day. 22 g 5 Active Active Problems Problem Noted Date Diagnosed Date Carpal tunnel syndrome 11/25/2024 Cervical intraepithelial neoplasia grade 2 11/25 Class 2 obesity 11/25/2024 Vulvovaginitis 11/25/2024 Overweight 11/27/2008 Encounters Date Type Department Care Team Description 11/25/2024 2:30 PM EDT Office Visit [facility] [address] [phone] Sammy Sharma MD Epistaxis (Primary Dx); Nasal vestibulitis; Deviated nasal septum from Last 3 Months Immunizations Immunization Administration Dates Next Due DT 04/26/2004 Influenza Split Preservative Free ID 09/28/2016 Influenza Virus Trivalent Split Vaccine (MDV) IM 07/25/2020,08/20/2018 Influenza Whole 05/28/2015 Tdap 12/10/2013 Social History Tobacco Use Types Packs/Day Years Used Date Smoking Tobacco: Never Passive Smoke Exposure: Never Smokeless Tobacco: Never Tobacco Cessation:Counseling Given: Not Answered Alcohol Use Standard Drinks/Week Comments Never 0 (1 standard drink = 0.6 oz pur e alcohol) Comments Unknown Sex and Gender Information Value [...] - Inhaled Oxygen Concentration - - Weight 89.8 kg (198 lb) 11/25/2024 2:31 PM EDT Height 172.7 cm (5' 8 ) 11/25/2024 2:31 PM EDT Body Mass Index 30.11 11/25/2024 2:31 PM EDT Plan of Treatment Upcoming Encounters Date Type Department Care Team (Late st Contact Info) Description 01/21/2025 3:30 PM EDT Office Visit [facility] [address] [phone] Sammy Sharma MD [address] [place] [address] Health Maintenance Due Date Last Done Comments Hepatitis C Virus Screening 1982 HIV Screening 1995 Hepatitis B Vaccines (1 of 3 - 19+ 3-dose series) 2001 Pap Smear (Ages 21-65) 2003 Mammogram 2022 DTaP/Tdap/Td Vaccines (3 - T d or Tdap) 12/11/2023 12/10/2013, 04/26/2004 COVID-19 Vaccine (2023-2 5 season) 2024 10/06/2020, 09/15/2020 Influenza Vaccine 03/14/2025 07/25/2020, 08/20/2018, 05/28/2015 HPV Vaccines Aged Out No longer eligi ble based on patient's age to complete this topic Pneumococcal Vaccine: Pediatric (0-5 Years) and At-Risk Patients (6 to 49 Years) Aged Out No longer eligible b ased on patient's age to complete this topic Insurance [facility] PREFERRED Care Teams Equipment Operator/Laborer Relationship Specialty Start Date End Date Evon Carcamo PA [address] [place] [address] PCP - General General Medicine 11/25/24
--- OUTSIDE RECORDS SUMMARY | 2025-01-02 08:12 | XMS_ITS ---
Author Organization [address] Address [address] [place] [phone] Care Team Providers Care Computer Education Professor Name Role Phone Unavailable Primary Care Provider Unavailabl e Transplant Episode Liver Potential Donor [facility] ([place], [place]) - [facility] Referred on 11/07/2023 Marked as Deferred on 12/22/2023 Reason: Other Donors Being Evaluated Liver CoordinatorJannet Dias RN Phone: N/A Fax: N/A Email: N/A Care Team Name Role Phone Fax Email Jannet Dias RN Liver Coordinator N/A N/A N/ A WILBER Tomlin Associate Coordinator N/A N/A N/A Events Pre-Donation Referred: 11/07/2023
--- OUTSIDE RECORDS SUMMARY | 2025-01-02 08:12 | XMS_ITS | Encounter Summary ---
Author Organization [facility] Address [address] [place] [phone] Care Team Providers Care Vp Construction Name Role Phone Unavailable Primary Care Provider Unavailabl e Reason for Visit * Reason Onset Date Comments Referral 11/21/2023 Liver living don or screening Encounter Details Date Type Department Care Team ([facility] st Contact Info) Description 11/21/2023 Telephone [facility] [address] [place] [address] Sridevi Cole RN [address] [place], [place] [phone] Referral (Liver living donor screening) Social History [...] BMI: 32.5 Ethnic Background: Medical Insurance: Yes, [facility] ABO: O positive Relationship to recipient: Donor's Co-worker's , she does not know her. Altruistic directed. Employed: [employer] How Lon years Marital Status: Single Children: 2 ( 20,8 y.o) Place of : [place] Citizen - Yes UNOS Listed: Yes Directed donation: Yes Date of : 1980 Social Security Number: (Not on file) Donor Address: [address] [place] [address] If outside [place], do yo have a VISA? NA Surgical History (Including any anesthesia issues): - Appendectomy in 2021 - Gall Bladder removed in 2021 - section x1 Anesthesia concerns: No MEDICAL HISTORY: FAMILY MEDICAL HISTORY: Hypercoagulability Screening: History of venous thrombosis? (DVT, PE, Budd-Chiari syndrome, mesenteric and portal vein thrombus, retinal vein thrombosis): No History of arterial thrombosis (FL, CVA, TIA): No History of post-operative thromboembolic [...] Provider Name: One time seen a Psychiatrist- [facility] Provider contact:NA Mother Age: 63 Health [...] how much): No PAP: Done 03/2023 - ACCOUNT EXECUTIVE KEY ACCOUNTS- Alfred Douglas Illegal or Recreational Drug (if [...]
== END ==
LOC: HO.CARD 08:08
PROVIDERS: PCP Physician Assistant Medical; Visit Provider Physician Assistant Medical
DX: R07.9 Chest pain, unspecified (principal); R55 Syncope and collapse
CPT/HCPCS: 78452; 93017; A9500

== ENCOUNTER → 2025-01-02 08:10 | Outpatient (BNV) | payer BC, SELFPAY | PROVIDERS: PCP Physician Assistant Medical | DX: R07.9 Chest pain, unspecified (principal) | CPT/HCPCS: 78452; 93016; 93018 ==

== ENCOUNTER 2025-03-03 13:51 | Outpatient (AMB) | payer BC, SELFPAY ==
[2025-03-03 13:53] VITALS: BP 140/90; PULSE 69; O2SAT 100; BMI 32.6
--- NOTE | 2025-03-03 13:53 | A.OFFVIS_ITS ---
Vital Signs 03/03/25 13:53 Height 5 ft 6 in Weight 202 lb BMI 32.6 BP 140/90 H Blood Pressure Location Rt brachial Position Sitting Pulse 69 Pulse Source Pulse Oximeter Pulse Oximetry (%) 100 Oxygen Delivery Method Room Air Intake Visit Reasons: 6 mo follow up Intake Note: Patient presents 6 month follow up for tremor. Propranolol hasn't been helping and tremors seem to be getting worse. Senior Research Associate Required: No Accompanied by: Self / Same As Patient Allergies penicillin G Allergy (Unknown, Verified 03/03/25 13:54) Rash Medication List - Last Reconciled 03/03/25 by Eliza Sweet MD bupropion HCl XL 300 mg PO QAM bupropion HCl XL 150 mg PO QAM multivitamin 1 tab PO DAILY propranolol ER 60 mg PO DAILY HPI Comments Details: 44y/o Right handed female comes for follow up of tremors.she feels its mildly worse.she did not respond to propranolol 20mg bid . she noticed lower lip tremors. History from initial visit- she always had mild tremors in her hands for over 20 years but for the past 2 years she feels it is worse. Now she is unable use an eyeliner, difficulty with fine motor function, drinking liquids ( uses 2 hands now), eating etc. The tremors are during certain postures .when she is anxious or stressed, she has noticed rest tremors even in her legs. she is able to hide the tremor sin social situations. No head tremors or voice tremors Her father has mild tremors and her older son has tremors. 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 she denies weakness, gait issues, change in voice etc. she also has mild voic etremors she was seen by Dr. Cazares and had MRI brain, TSH levels . Both were normal [facility] Medical History IFG (impaired fasting glucose) Screening for cardiovascular condition Essential and other specified forms of tremor Routine physical examination Chest pain Tremor of both hands Obesity, class 1 Essential hypertension Epistaxis Dizziness Depression Concentration deficit Cholelithiasis Carpal tunnel syndrome Surgical History History of cholecystectomy History of appendectomy Social History Housing: House Alcohol intake: never Patient Tobacco Use Status: Never used Tobacco e-Cigarette/Vaping Use: Never Used Second Hand Smoke Exposure: No service: Yes Current occupational status: employed Current occupation: [employer] Current occupational exposures/hazards: Yes Cognitive needs: No Hearing needs: No Vision needs: No Physical Exam Vital Signs: Last Vital Signs Pulse 69 03/03/25 13:53 BP 140/90 H 03/03/25 13:53 Pulse Ox 100 03/03/25 13:53 Oxygen Delivery Method Room Air 03/03/25 13:53 BMI result Body Mass Index 32.6 Const General: cooperative, healthy appearing and comfortable Nutritional Appearance: overweight Orientation/consciousness: patient oriented x3 Limitations: no limitations Eyes Pupils: Equal, round and reactive pupils present Neuro Other: very mild postural tremors, robyn UE ARchimedes spiral - mild tremors right moderate - left Handwriting is Ok General: patient oriented x3, gait normal, tone normal and moves all extremities Cranial nerves: Yes Facial sensation intact/muscles of mastication intact, Yes Equal, round and reactive pupils present, Yes Bilaterally intact EOM present, Yes Nystagmus not present, Yes Normal facial strength present, Yes Midline tongue present and Yes Symmetric palate elevation present Cognition (Neuro): normal cognition Gait exam (Neuro): Normal gait present Motor exam (neuro): 5/5 motor strength present throughout and Normal motor muscle tone present throughout Deep tendon reflexes (DTR's): Right triceps reflex intensity grade: 1+, Left triceps reflex intensity grade: 1+, Rt Biceps (C5, C6): 1+, Left biceps reflex intensity grade: 1+, Right brachioradialis reflex intensity grade: 1+, Left brachioradialis reflex intensity grade: 1+ and Right patellar reflex intensity grade: 1+ Coordination: [id number] test normal Assessment & Plan Assessment & Plan (1) Essential and other specified forms of tremor: Comment: likely familial Code(s): G25.0 - Essential tremor; G25.2 - Other specified forms of tremor Category: Medical Plan I will restart her on propranolol LA 60mg qd will increase depending on the response. MRI report from [facility] suggested hand exercises. Medications: New propranolol ER 60 mg PO DAILY 30 caps 6RF Discontinued propranolol Discontinued Reason: Patient no longer taking 10 mg PO BID PRN 60 tabs 2RF tremors Coding Level of Care Code Est Pt Level 4 (53470) Complex EM visit Add On G2211 Diagnoses Essential and other specified forms of tremor G25.0; G25.2
--- OUTSIDE RECORDS SUMMARY | 2025-03-03 14:40 | XMS_ITS | Clinical Summary ---
Author Organization [facility] Address [address] [place] [address] Care Team Providers Care Founder And President Name Role Phone Bernardo Pisano PA-C Primary Care Provider [phone] Medications No known medications Active Problems No [...] 77 04/26/2022 3:51 PM EDT Temperature 36.8 C (98.3 F) 04/26/2022 3:51 PM EDT Respiratory Rate 18 04/26/2022 3:51 PM EDT [...] season) 2024 10/06/2020, 09/15/2020 Influenza Vaccine (#1) 2025 0, 08/20/2018, 09/28/2016 Pneumococcal Vaccine Aged Out No long er eligible based on patient's age to complete this topic RSV Ped < 20 months Aged Out No longe r eligible based on patient's age to complete this topic Care Teams Founder And President Relationship Specialty Start Date End Date Bernardo Pisano PA-C [address] [facility] [place] [phone] PCP - General Physician Test Rider 04/26/22
--- OUTSIDE RECORDS SUMMARY | 2025-03-03 14:40 | XMS_ITS | Encounter Summary ---
Author Organization [facility] Address [address] [place] [phone] Care Team Providers Care Home Planning Consultant Salesperson Name Role Phone Evon Carcamo Primary Care Provide r Encounter Details Date Type Department Care Team (Late st Contact Info) Description 07/08/2024 Scanned Document INTERFACE DEFAULT [address] [place] [address] System, Provider Not In Social History Tobacco Use Types Packs/Day Years [...] Care Team (Late st Contact Info) Description 03/20/2025 8:00 AM EDT Clinical Support [facility] [address] [address] 03/20/2025 10:00 AM EDT Clinical Support [facility] [address] [address] 03/20/2025 10:15 AM EDT Social Work [facility] [address] [address] Work, Ynv Txp Social 03/20/2025 11:15 AM EDT Office Visit [facility] [address] [address] 03/20/2025 12:00 PM EDT Nutrition [facility] [address] [address] 03/20/2025 2:00 PM EDT Office Visit Cardiovascular Medicine at [address] [address] Kaylin Figueroa APRN [address] [place] [phone] 03/20/2025 3:00 PM EDT Appointment [facility] Nuclear Medicine Cardiology [address] [place] [address] [address] [place] [address] Alysha Machado MD [address] [place] [phone] 03/20/2025 6:40 PM EDT Appointment [facility] MRI [address] [place] [address] Alysha Machado MD [address] [place] [phone] 03/21/2025 8:10 AM EDT Appointment [facility] Cardiac Services [address] [place] [address] Alysha Machado MD [address] [place] [phone] 03/21/2025 9:00 AM EDT Office Visit [facility] [address] [address] 03/21/2025 10:00 AM EDT Telemedicine [facility] [address] [address] 03/21/2025 11:00 AM EDT Social Work [facility] [address] [address] Provider, Tarun Sofie 03/21/2025 1:40 PM EDT Appointment [facility] CT Scan [address] [place] [address], [place] [address] ToAlysha MD [address] [place] [phone] documented as of this encounter Visit Diagnoses Not on filedocumented in this encounter Care Teams Home Planning Consultant Salesperson Relationship Specialty Start Date End Date Evon Carcamo PA [address] [place] [phone] PCP - General 02/21/25 documented as of this encounter
--- OUTSIDE RECORDS SUMMARY | 2025-03-03 14:40 | XMS_ITS | Encounter Summary ---
Author Organization [facility] Address [address] [place] [address] Care Team Providers Care Head Wrestling Coach Name Role Phone Leandra Mena MD Primary Care Provider [phone] Encounter Details Date Type Department Care Team (Late st Contact Info) Description 11/21/2024 Lab Requisition [facility] - Main Lab [address] [facility] [place] [phone] Monica Rea MD [address] [facility] [address] [place] [phone] Acute vaginitis; Urinary tract infection, site not [...] reflex microscopic (11/21/2024 12:00 AM EDT) Specific [place] Urine 1.012 1.003 - 1.030 LAB URINALYSIS - AUTOMATED METHOD 11/21/2024 1:35 PM [facility] pH, Urine 7.5 5.0 - 8.0 pH LAB URINALYSIS - AUTOMATED METHOD 11/21/2024 1:35 PM [facility] Leukocytes, Urine Moderate(A) Negative LAB URINALYSIS - AUTOMATED METHOD 11/21/2024 1:35 PM [facility] Nitrite, Urine Positive(A) Negative LAB URINALYSIS - AUTOMATED METHOD 11/21/2024 1:35 PM [facility] Protein, Urine Negative <=Trace mg/dL LAB URINALYSIS - AUTOMATED METHOD 11/21/2024 1:35 PM [facility] Glucose, Urine Negative Negative mg/dL LAB URINALYSIS - AUTOMATED METHOD 11/21/2024 1:35 PM [facility] Ketones, Urine Trace(A) Negative mg/dL LAB URINALYSIS - AUTOMATED METHOD 11/21/2024 1:35 PM [facility] Urobilinogen , Urine 1.0 0.2 - 1.0 mg/dL LAB URINALYSIS - AUTOMATED METHOD 11/21/2024 1:35 PM [facility] Bilirubin, Urine Negative Negative LAB URINALYSIS - AUTOMATED METHOD 11/21/2024 1:35 PM [facility] Blood, Urine Trace(A) Negative LAB URINALYSIS - AUTOMATED METHOD 11/21/2024 1:35 PM [facility] RBC, Urine 12.3(H) 0 - 4 /HPF LAB URINALYSIS - AUTOMATED METHOD 11/21/2024 1:35 PM EDT [facility] WBC, Urine 46.5(H) 0 - 4 /HPF LAB URINALYSIS - AUTOMATED METHOD 11/21/2024 1:35 PM EDT [facility] Squamous Epithelial, Urine 8 0 - 60 /LPF LAB URINALYSIS - AUTOMATED METHOD 11/21/2024 1:35 PM EDT [facility] Bacteria, Urine Many(A) Negative /HPF LAB URINALYSIS - AUTOMATED METHOD 11/21/2024 1:35 PM EDT [facility] Hyaline Casts, Urine 0.0 0 - 3 /LPF LAB URINALYSIS - AUTOMATED METHOD 11/21/2024 1:35 PM EDT [facility] Urine Urine specimen obtained by clean catch procedure / Unknown 11/21/2024 11/21/2024 1:26 PM EDT us Monica Rea MD LAB URINE ORDERABLES Fin al Result [facility] [address] [place] [address], * (ABNORMAL) Culture urine (11/21/2024 12:00 AM EDT) Culture, Urine >100,000 CFU/mL Escherichia coli(A) ANITA 11/23/2024 10:22 AM EDT [facility] Urine Urine specimen obtained by [...] AL ORDERABLES Final Result Performing Organization Address [facility] Co de Phone Number [facility] [address] [place] [address], [place] [phone] * (ABNORMAL) Vaginitis pathogens molecular study (11/21/2024 12:00 AM EDT) Trichomonas vaginalis Negative Negative 11/22/2024 10:46 AM EDT [facility] Gardnerella vaginalis Positive(A) Negative 11/22/2024 10:46 AM EDT [facility] Nicol Species Negative Negative 10:46 AM EDT [facility] Swab Vaginal structure / Unknown 11/21/2024 11/21/2024 1:26 PM EDT Monica Rea MD LAB MICROBIOLOGY - GENER AL ORDERABLES Final Result Performing Organization Address [facility]/ZIP Co de Phone Number [facility] [address] [place] [address], [place] [phone] documented in this encounter Visit Diagnoses Diagnosis Acute vaginitis Unspecified vaginitis and vulvovaginitis Urinary tract infection, site not specified documented in this encounter Care Teams Head Wrestling Coach Relationship Specialty Start Date End Date Leandra Mena MD [address] [place] [phone] PCP - General Internal Medicine 05/11/22 documented as of this encounter
--- OUTSIDE RECORDS SUMMARY | 2025-03-03 14:40 | XMS_ITS | Encounter Summary ---
Author Organization [facility] Address [address] [place] [address] Care Team Providers Care Grid Maker Name Role Phone Evon Carcamo Primary Care Provider [phone] Encounter Details Date Type Department Care Team (Late st Contact Info) Description 03/03/2020 Lab Requisition EM Lab DOC: Jeremias Cochran [address] [place] [phone] Bernardo Ramirez PA-C [address] [place] [address] Encounter for laboratory testing for COVID-19 virus [...] (COVID-19), Qual (03/03/2020 12:07 PM EDT) Pathologist [facility] SARS CoV 2 RNA, Qual NOT DETECTED NOT DETECTED 03/04/2020 5:00 PM EDT [facility] Comment: A Not Detected (negative) test [...] providers and patients using the following websites: https://www.[employer]riket[employer]/home/Covid-19/HCP/NAAT/fact-sheet2 https://www.[employer]/home/Covid-19/Patients/NAAT/ fact-sheet2 This test has been authorized by the FDA under an Emergency Use Authorization (EUA) for use by authorized laboratories. Due to the current public health emergency, [facility] is receiving a high volume of samples [...] including collection of an additional specimen. Methodology: Nucleic Acid Amplification Test (NAAT) includes PCR or TMA Additional information about COVID-19 can be found at the [facility] website: www.Jetpac[employer]/Covid19. Microbiology Nasopharyngeal swab / Unknown 03/03/2020 12:07 PM EDT 03/03/2020 12:07 PM EDT [facility] - 03/04/2020 5:00 PM EDT Performing Organization Information: Site ID: [id number] Name: [facility] Address: [address] [place] [address],[place] [address] Director: ALFREDO MACKEY MD [facility] License number [id number] Bernardo Ramirez PA-C BODY FLUIDS AND STOOLS OR DERABLES Final Result [facility] Blas [facility] documented in this encounter Visit Diagnoses Diagnosis Encounter for laboratory testing for COVID-19 virus documented in this encounter Care Teams Grid Maker Relationship Specialty Start Date End Date Evon Carcamo PA [address] [place] [phone] PCP - General General Medicine 11/25/24 documented as of this encounter
--- OUTSIDE RECORDS SUMMARY | 2025-03-03 14:41 | XMS_ITS ---
Author Name [facility] Organization Unknown Results Test Name/Text Value Interpretation Date Range Source Hgb A1c MFr Bld 5.7 % Above high normal 11/30/2023 4 - 5 .6 [facility] ESTIMATED AVERAGE GLUCOSE 117.0 mg/dL Normal 11/30/2023 [facility] RH TYPE POS Normal 11/30/2023 [facility] ABO GROUPING O Normal 11/30/2023 [facility] AST/ALT SerPl-cRto 0.6 Normal 11/30/2023 - [facility] Albumin SerPl BCG-mCnc 4.5 g/dL Normal 11/30/2023 3.6 - 5.1 [facility] AST SerPl w P-5'-P-cCnc 15.0 U/L Normal 11/30/2023 10 - 35 [facility] Bilirub SerPl-mCnc 0.3 mg/dL Normal 11/30/2023 - [facility] Globulin Plas-mCnc 2.8 g/dL Normal 11/30/2023 2 - 3.9 [facility] Bilirub Direct SerPl-mCnc <0.2 mg/dL Normal 11/30/2023 - [facility] Prot SerPl-mCnc 7.3 g/dL Normal 11/30/2023 5.9 - 8.3 [facility] Albumin/Glob SerPl 1.6 Normal 11/30/2023 1 - 2.2 [facility] ALP SerPl-cCnc 100.0 U/L Normal 11/30/2023 9 - 122 [facility] ALT SerPl w/o P-5'-P-cCnc 25.0 U/L Normal 11/30/2023 10 - 35 [facility] History of Medication Use Medication Directions Dispensed Refills Start Date End Date Stat [facility] (BACTROBAN) 2 % ointment Apply topically 2 times a day. 11/25/2024 active buPROPion (WELLBUTRIN XL) 300 MG 24 hr tablet Take 300 mg by mouth every morning. 10/14/2024 active propranolol (INDERAL) 10 MG tablet TAKE 1 TABLET BY MOUTH TWICE A DAY NEEDED FOR TREMORS 09/04/2024 active Allergies Allergen Reaction Severity Comment Documented Date Source Statu s PENICILLIN G UNKNOWN/PATIENT AND FAMILY UNABLE TO DEFINE 11/25/2024 [facility] act[facility] ve Problems Problem Status Onset Date Problem Type Date of Resolution Source Class 2 obesity active 2024-11-25 ProblemAct [facility] Carpal tunnel syndrome active 2024-11-25 ProblemAct [facility] Vulvovaginitis active 2024-11-25 ProblemAct [facility] Cervical intraepithelial neoplasia grade 2 active 2024-11-25 ProblemAct [facility] Nasal vestibulitis active EncounterDiagnosisAct [facility] Overweight active 2008-11-27 ProblemAct [facility] Immunizations Vaccine Date Source Lot Number Status Influenza Virus Trivalent Sp lit Vaccine (MDV) IM 07/25/2020 [facility] [id number] completed Influenza Virus Trivalent Sp lit Vaccine (MDV) IM 08/20/2018 [facility] UNK completed Influenza Split Preservative Free ID 09/28/2016 [facility] [id number] completed Influenza Whole 05/28/2015 [facility] UNK completed Tdap 12/10/2013 [facility] UNK completed DT 04/26/2004 [facility] UNK completed Encounters Encounter Type Encounter Reason Primary Diagnosis Location Date Ambulatory Nose Bleed Nose Bleed [facility] 11/25/2024 Care Team Organization Name Specialty Phone Email Start Date End Da te [facility] 11/28/2024 12/28/2024 [facility] LIZETTE YOUSSEF Primary Care 11/25/2024 [facility] 11/20/2024 [facility] 06/28/2024
--- OUTSIDE RECORDS SUMMARY | 2025-03-03 14:41 | XMS_ITS | Patient Health Record ---
Author Organization [facility] Address [address] [place] [address] Care Team Providers Care Wood Cut Engraver Name Role Phone Faby Enrique Unavailable [phone] Reason For Referral No Information Medications Medication SIG (Take, Route, Frequency, Duration) Notes Start Date End Date Status Multivitamins 1 ORAL daily; Duration: -3 Alen-MJ 4 Active Cryselle-28 0.3-30MG-MCG 1 ORAL daily; Duration: -3 Alen-MJ 01/24/2014 Active MetroGel-Vaginal 0.75% 1 Vaginal at bedt sandeep; Duration: -3 Alen-MJ 02/17/2014 Active Problems Problem Type SNOMED Code ICD Code Onset Dates Problem Status W/U Status Risk Notes Problem Vulvovaginitis (disorder) (39136841) Unspecified vaginitis and vulvovaginitis (616.10) Active confirmed Diag Problem Moderate dysplasia of cervix (641856834) Moderate dysplasia of cervix (622.12) Active confirmed Diag Problem Routine gynecological examination (V72.31) Active confirmed Major Plan Of Treatment No Information Insurance Providers Payer Name Payer Address Payer Phone Subscriber Number Group Number Insured Name Patient Relationship to Insured Coverage Start Date Coverage End Date [employer] [place] [address] [place] [address] [id number] ELISSA CABA Self - patient is the insured
== END 2025-03-03 14:31 | disposition home or self-care (01) ==
LOC: HO.HSMS 13:52
PROVIDERS: PCP Physician Assistant Medical; Visit Provider Psychiatry & Neurology Neurology
DX: G25.0 Essential tremor (principal); G25.2 Other specified forms of tremor
CPT/HCPCS: 99214

== ENCOUNTER 2025-03-03 15:52 | Outpatient (AMB) | payer BC, SELFPAY ==
--- NOTE | 2025-03-03 15:56 | A.OFFPC_ITS ---
Vital Signs 03/03/25 15:59 Height 5 ft 8 in Weight 201 lb BMI 30.6 BP 120/82 Blood Pressure Location Lt brachial Position Sitting Respiration 12 Pulse 68 Pulse Source Pulse Oximeter Temp 98.5 F Temp Source Temporal Artery Scan Pulse Oximetry (%) 98 Oxygen Delivery Method Room Air Intake Visit Reasons: med review Intake Note: Agnes presents in the office today for a medication check in. Allergies penicillin G Allergy (Unknown, Verified 03/03/25 15:58) Rash Tobacco use date assessed: 03/03/25 Dental Screening Dental Screen Date: 03/03/25 Did you have a dental visit in the last 12 months?: Yes Did you have a dental problem in the last 6 months where you did not have access to dental care?: No Was dental information given to patient?: Patient has dentist HPI HPI Comments History of Present Illness Details This is a 44-year-old female with a past medical history of depression, concentration deficit, hand tremors and hypertension presenting for follow up. She takes is bupropion 450 mg (taking a 300 mg and 150 mg extended release tablet) for depression and concentration deficit. She feels like the medication might need to be changed. She isn't sure that it is helping. She is having some breakthrough anxiety and depression symptoms which are affecting her focus. No SI or HI. She is not sure of particular anxiety triggers. She was previously evaluated by Psychiatry. She wants to avoid stimulant medication. She is followed by Dr. Sweet for essential tremor. Dose of propranolol increased to 60 mg today. She is sleeping well. ROS: Constitutional: No unexplained weight loss, fever, chills, fatigue or night sweats. Neurologic: No headache, dizziness, syncope Psychiatric: No SI/HI. Physical exam: Constitutional: Alert, in no distress. Respiratory: Clear to auscultation. Cardiovascular: S1 S2 regular. No murmurs Psychiatric: Normal mood and affect [facility] Medical History (Updated 03/04/25 @ 09:01 by GRICELDA Welsh) Depression with anxiety IFG (impaired fasting glucose) Screening for cardiovascular condition Essential and other specified forms of tremor Routine physical examination Chest pain Tremor of both hands Obesity, class 1 Essential hypertension Epistaxis Dizziness Depression Concentration deficit Cholelithiasis Carpal tunnel syndrome Surgical History History of cholecystectomy History of appendectomy Social History (Updated 03/03/25 @ 15:59 by Dora Kim MA) Housing: House Alcohol intake: never Patient Tobacco Use Status: Never used Tobacco e-Cigarette/Vaping Use: Never Used Second Hand Smoke Exposure: No service: Yes Current occupational status: employed Current occupation: [employer] Current occupational exposures/hazards: Yes Cognitive needs: No Hearing needs: No Vision needs: No Questionnaire Thrive Questionnaire Date Thrive assessed: 08/19/24 I am a: Patient What is your living situation today?: I have a steady place to live Within the past 12 months, did the food you bought not last and you didn't have the money to get more?: Never true Within the past 12 months, did you worry whether your food would run out before you got money to buy more?: Never true Do you have trouble paying for medicines?: No Do you have trouble getting transportation to medical appointments?: No Do you have trouble paying your heating and electricity bill?: No Do you have trouble taking care of your child, family member or friend?: No Do you have trouble with day-to-day activities such as bathing, preparing meals, shopping, managing finances, etc.?: No Are you currently unemployed and looking for a job?: No Are you interested in more education?: No Please select the resources that you would like help with: None Currently or been in a relationship where the following occur: No concerns reported THRIVE Score: 0 RODRIGUEZ-7 AMB Questionnaire RODRIGUEZ-7 Date RODRIGUEZ - 7 assessed: 08/26/24 Source: Developed by Drs. Jalen Garcia, Rocio Mcmillan, Blaine Mo and colleagues, with an educational jose from [employer]. Physical exam (Primary Care) Vital Signs: Last Vital Signs Temp 98.5 F 03/03/25 15:59 Pulse 68 03/03/25 15:59 Resp 12 03/03/25 15:59 BP 120/82 03/03/25 15:59 Pulse Ox 98 03/03/25 15:59 Oxygen Delivery Method Room Air 03/03/25 15:59 BMI result Body Mass Index 30.6 Tobacco/Smoking Status: Tobacco use Status Tobacco use date assessed 03/03/25 03/03/25 16:02 Patient Tobacco Use Status Never used Tobacco 03/03/25 16:02 e-Cigarette/Vaping Use Never Used 03/03/25 16:02 Thrive Assessment: Date of Thrive Assessment Date Thrive assessed 08/19/24 03/03/25 16:02 Currently or been in a relationship where the following occur: No concerns reported Coding Level of Care Code Est Pt Level 4 (55335) Complex EM visit Add On G2211 Diagnoses Depression with anxiety F41.8 Concentration deficit R41.840 Essential and other specified forms of tremor G25.0; G25.2 Assessment & Plan Assessment & Plan (1) Depression with anxiety: Code(s): F41.8 - Other specified anxiety disorders Category: Medical (2) Concentration deficit: Code(s): R41.840 - Attention and concentration deficit Category: Medical (3) Essential and other specified forms of tremor: 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 She will try reducing bupropion to 300 mg daily and start sertraline for treatment of anxiety and depression symptoms. Black box warning, side effects and administration reviewed. She will contact me if she has any difficulty on the medication. She plans to start the increased dose of propranolol for essential tremor. She has a follow up scheduled with Neurology. She has testing to become a liver donor in 2 weeks so she is not going to make these medication changes until after that is complete so she will follow up 4-6 weeks after the medication changes. Medications: New sertraline (Zoloft) Take 1/2 tab po every evening for a week and then increase to 1 tab every evening. 50 mg PO DAILY 90 tabs 0RF Discontinued bupropion HCl XL Discontinued Reason: Doctor's Order 150 mg PO QAM 90 tabs 3RF
[2025-03-03 15:59] VITALS: BP 120/82; PULSE 68; RESP 12; TEMP 36.9; O2SAT 98; BMI 30.6
== END 2025-03-03 16:31 | disposition home or self-care (01) ==
LOC: HO.HMCFM 15:53
PROVIDERS: PCP Physician Assistant Medical; Visit Provider Physician Assistant Medical
DX: F41.8 Other specified anxiety disorders (principal); R41.840 Attention and concentration deficit; G25.0 Essential tremor; G25.2 Other specified forms of tremor